=== PATIENT | male | born 1955 | race Hispanic/Latino ===

== ENCOUNTER 2017-12-01 04:02 | Emergency (ER) | payer MEDICAID ==
[2017-12-01 04:02] VITALS: BMI 28.2
[2017-12-01 04:22] VITALS: RESP 18; TEMP 98; O2SAT 99
--- NOTE | 2017-12-01 05:02 | ED PDOC ---
HPI: General Adult Time Seen by Provider: 12/01/17 04:25 Chief Complaint (Nursing): Medical Clearance Chief Complaint (Provider): Medication refill History Per: Patient History/Exam Limitations: no limitations Onset/Duration Of Symptoms: Days Have you had recent travel within the past 21 days to any of the following countries: [place], [place], [place] or [place]?: No Additional Complaint(s): 62 yo male with type II DM and HTN presents for evaluation of blood glucose and BP. PT also would like a refill of his metformin. Pt takes 1000mg PO BID. Denies complaints. Past Medical History Reviewed: Historical Data, Nursing Documentation, Vital Signs Vital Signs: Last Vital Signs Temp 98 F 12/01/17 04:19 Pulse 86 12/01/17 04:19 Resp 18 12/01/17 04:19 BP 140/64 12/01/17 04:19 Pulse Ox 99 12/01/17 04:19 - Medical History PMH: Diabetes, HTN, Hypercholesterolemia, Parkinson's Disease, Schizophrenia Denies: HIV, Chronic Kidney Disease - Surgical History Surgical History: Tonsillectomy - Family History Family History: States: Unknown Family Hx - Living Arrangements Living Arrangements: With Family - Social History Current smoker - smoking cessation education provided: No - Immunization History Hx Tetanus Toxoid Vaccination: No Hx Influenza Vaccination: Yes Hx Pneumococcal Vaccination: No - Home Medications Home Medications: Ambulatory Orders Medication Instructions Recorded Acarbose 100 mg PO TID #0 06/30/13 Benztropine [Cogentin] 1 mg PO DAILY #0 06/30/13 QUEtiapine [Seroquel XR] 300 mg PO HS #0 06/30/13 Insulin Glargine, Recombinan 50 unit SC DAILY 09/30/14 [Lantus] Piperacillin/Tazobact 2.25gm 2.25 gm IVPB Q8H #0 bag 10/08/14 [ZOSYN 2.25 gm in 0.9% 100 ml] Acetaminophen [Tylenol 325mg tab] 650 mg PO Q4 PRN #0 tab 10/19/14 Aluminum Hydroxide/Magnesium 30 ml PO Q6 PRN #0 udc 10/19/14 [Maalox Plus 30 ml] Atorvastatin [Lipitor] 10 mg PO HS #0 tab 10/19/14 Benztropine [Cogentin] 1 mg PO DAILY #0 tab 10/19/14 Colchicine 0.6 mg PO DAILY 10/19/14 Insulin Detemir [Levemir] 50 units SC DAILY@2200 #0 vial 10/19/14 Tamsulosin [Flomax] 0.4 mg PO DAILY #0 cap 10/19/14 MetFORMIN [glucoPHAGE] 1,000 mg PO BID #14 tab 12/01/17 - Allergies Allergies/Adverse Reactions: Allergies Allergy/AdvReac Type Severity Reaction Status Date / Time No Known Allergies Allergy Verified 09/30/14 13:33 Review of Systems ROS Statement: Except As Marked, All Systems Reviewed And Found Negative Constitutional: Negative for: Fever, Chills Cardiovascular: Negative for: Chest Pain Respiratory: Negative for: Cough Gastrointestinal: Negative for: Nausea, Vomiting, Abdominal Pain Genitourinary Male: Negative for: Dysuria, Frequency Physical Exam - Reviewed Nursing Documentation Reviewed: Yes Vital Signs Reviewed: Yes - Physical Exam Appears: Positive for: Well, Non-toxic, No Acute Distress Head Exam: Positive for: ATRAUMATIC, NORMAL INSPECTION, NORMOCEPHALIC Skin: Positive for: Normal Color, Warm, DRY Eye Exam: Positive for: Normal appearance ENT: Positive for: Normal ENT Inspection Neck: Positive for: Normal, Painless ROM Cardiovascular/Chest: Positive for: Regular Rate, Rhythm Respiratory: Positive for: CNT, Normal Breath Sounds Back: Positive for: Normal Inspection Extremity: Positive for: Normal ROM Neurologic/Psych: Positive for: Alert, Oriented - ECG O2 Sat by Pulse Oximetry: 99 Disposition - Clinical Impression Clinical Impression: Medication refill - Patient ED Disposition Is Patient to be Admitted: No Counseled Patient/Family Regarding: Diagnosis, Need For Followup, Rx Given - Disposition Referrals: [facility] [Outside] Disposition: Routine/Home Disposition Time: 05:01 Condition: STABLE Prescriptions: MetFORMIN [glucoPHAGE] 1,000 mg PO BID #14 tab
[2017-12-01 05:26] VITALS: BP 156/76; PULSE 82
== END 2017-12-01 05:26 | disposition home or self-care (01) ==
LOC: H.ER 04:02
DX: Z76.0 Encounter for issue of repeat prescription (principal); E11.9 Type 2 diabetes mellitus without complications; Z79.4 Long term (current) use of insulin; G20 Parkinson's disease; E78.00 Pure hypercholesterolemia, unspecified; F20.9 Schizophrenia, unspecified; I10 Essential (primary) hypertension

== ENCOUNTER 2017-12-01 21:28 | Emergency (ER) | payer MEDICAID ==
[2017-12-01 21:28] VITALS: BMI 28.2
[2017-12-01 21:44] VITALS: RESP 18
--- NOTE | 2017-12-01 23:31 | ED PDOC ---
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 Patient is currently taking metformin 1000mg BID and Ramipril 10mg daily for blood pressure. He reports a mild headache and mild nausea but denies any fever, chills, dizziness, chest pain, shortness of breath, vomiting or abdominal pain. No further medical complaints. PMD: Tyree [facility]ula Past Medical History Reviewed: Historical Data, Nursing Documentation, Vital Signs Vital Signs: Last Vital Signs Temp 97.8 F 12/01/17 21:41 Pulse 98 H 12/01/17 21:41 Resp 18 12/01/17 21:41 BP 140/68 12/02/17 00:16 Pulse Ox 98 12/02/17 00:20 - Medical History PMH: Diabetes, HTN, Hypercholesterolemia, Parkinson's Disease, Schizophrenia Denies: HIV, Chronic Kidney Disease - Surgical History Surgical History: Tonsillectomy - Family History Family History: States: Unknown Family Hx - Social History Current smoker - smoking cessation education provided: No Alcohol: None Drugs: Denies - Immunization History Hx Tetanus Toxoid Vaccination: No Hx Influenza Vaccination: Yes Hx Pneumococcal Vaccination: No - Home Medications Home Medications: Ambulatory Orders Medication Instructions Recorded Acarbose 100 mg PO TID #0 06/30/13 Benztropine [Cogentin] 1 mg PO DAILY #0 06/30/13 QUEtiapine [Seroquel XR] 300 mg PO HS #0 06/30/13 Insulin Glargine, Recombinan 50 unit SC DAILY 09/30/14 [Lantus] Piperacillin/Tazobact 2.25gm 2.25 gm IVPB Q8H #0 bag 10/08/14 [ZOSYN 2.25 gm in 0.9% 100 ml] Acetaminophen [Tylenol 325mg tab] 650 mg PO Q4 PRN #0 tab 10/19/14 Aluminum Hydroxide/Magnesium 30 ml PO Q6 PRN #0 udc 10/19/14 [Maalox Plus 30 ml] Atorvastatin [Lipitor] 10 mg PO HS #0 tab 10/19/14 Benztropine [Cogentin] 1 mg PO DAILY #0 tab 10/19/14 Colchicine 0.6 mg PO DAILY 10/19/14 Insulin Detemir [Levemir] 50 units SC DAILY@2200 #0 vial 10/19/14 Tamsulosin [Flomax] 0.4 mg PO DAILY #0 cap 10/19/14 MetFORMIN [glucoPHAGE] 1,000 mg PO BID #14 tab 12/01/17 - Allergies Allergies/Adverse Reactions: Allergies Allergy/AdvReac Type Severity Reaction Status Date / Time No Known Allergies Allergy Verified 09/30/14 13:33 Review of Systems ROS Statement: Except As Marked, All Systems Reviewed And Found Negative Constitutional: Negative for: Fever, Chills Cardiovascular: Negative for: Chest Pain Respiratory: Negative for: Shortness of Breath Gastrointestinal: Positive for: Nausea (mild). Negative for: Vomiting, Abdominal Pain Neurological: Positive for: Headache (mild). Negative for: Dizziness Physical Exam - Reviewed Nursing Documentation Reviewed: Yes Vital Signs Reviewed: Yes - Physical Exam Comments: GENERAL APPEARANCE: Patient is awake, alert, oriented x 3, in no acute distress. SKIN: Warm, dry; (-) cyanosis; (-) rash. HEAD: (-) scalp swelling or tenderness, (-) temporal artery tenderness. EYES: (-) conjunctival pallor, (-) scleral icterus. ENMT: (-) sinus tenderness; mucous membranes are moist. NECK: (-) tenderness, (-) stiffness, (-) meningismus, (-) lymphadenopathy. CHEST AND RESPIRATORY: (-) rales, (-) rhonchi, (-) wheezes; breath sounds equal bilaterally. HEART AND CARDIOVASCULAR: (-) irregularity; (-) murmur, (-) gallop. ABDOMEN AND GI: Soft; (-) tenderness. EXTREMITIES: (-) deformity. NEURO AND PSYCH: Mental status as above. educational aide: Pupils equal and reactive; EOMI ; (-) facial asymmetry; tongue and uvula midline. Strength symmetric. Ambulating with a steady gait. - ECG O2 Sat by Pulse Oximetry: 98 (RA) Pulse Ox Interpretation: Normal Medical Decision Making Medical Decision Making: Time: 21:47 Initial Impression: Initial Plan: --Ramipril 10 mg PO --Gluose, Blood POC --reevaluation 22:50 Finger Stick: 263 Repeat BP 140/68. On re-evaluation, patient remains AAOx3, in no acute distress. Offers no other complaints. Denies any headache or nausea at this time. Patient instructed to follow-up with pmd in 1-2 days without fail. RN will call local fire department to help the patient get back inside of his home. Advised to return to the emergency room at any time for any new or worsening symptoms. Patient states he fully agrees with and understands discharge instructions. States that he agrees with the plan and disposition. Verbalized and repeated discharge instructions and plan. I have given the patient opportunity to ask any additional questions. ----- Scribe Attestation: Documented by Tesfaye Oates, acting as a scribe for Neema Davis PA-C. Provider Scribe Attestation: All medical record entries made by the Scribe were at my direction and personally dictated by me. I have reviewed the chart and agree that the record accurately reflects my personal performance of the history, physical exam, medical decision making, and the department course for this patient. I have also personally directed, reviewed, and agree with the discharge instructions and disposition. Disposition - Clinical Impression Clinical Impression: Hypertension - Patient ED Disposition Is Patient to be Admitted: No Counseled Patient/Family Regarding: Diagnosis, Need For Followup - Disposition Disposition: Routine/Home Disposition Time: 00:00 Condition: STABLE Additional Instructions: Thank you for letting us take care of you today. You were treated for HTN. The emergency medical care you received today was directed at your acute symptoms. Return to the Emergency Department if your symptoms worsen, do not improve, or if you have any other problems. Please contact your doctor in 2 days for re-evaluation and follow up. Bring any paperwork you were given at discharge with you along with any medications you are taking to your follow up visit. Our treatment cannot replace ongoing medical care by a primary care provider (PCP) outside of the emergency department. Thank you for allowing the [facility] team to be part of your care today. Instructions: High Blood Pressure in Adults Forms: [employer] (German) - PA / VOC[employer] CHILDC[employer] TEACHER / Resident Statement MD/DO has reviewed & agrees with the documentation as recorded.
[2017-12-02 03:20] VITALS: BP 132/66; PULSE 90; TEMP 98.2; O2SAT 99
== END 2017-12-02 01:50 | disposition home or self-care (01) ==
LOC: H.ER 21:28
DX: I10 Essential (primary) hypertension (principal); E11.9 Type 2 diabetes mellitus without complications; E78.00 Pure hypercholesterolemia, unspecified; F20.9 Schizophrenia, unspecified; G20 Parkinson's disease; Z79.4 Long term (current) use of insulin

== ENCOUNTER 2018-03-19 08:10 | Emergency (ER) | payer MEDICAID ==
[2018-03-19 08:10] VITALS: BMI 28.2
--- NOTE | 2018-03-19 08:36 | ED PDOC ---
HPI: CCC, URI, Sore Throat Time Seen by Provider: 03/19/18 08:17 Chief Complaint (Provider): Cough History Per: Patient History/Exam Limitations: no limitations Onset/Duration Of Symptoms: Days (1 week) Additional Complaint(s): Pt. with cough for 1 week. No chest pain, dyspnea, fever. No abd pain, headaches, dizziness. Took nothing for it. Has runny nose and nasal congestion. No weakness. Past Medical History Vital Signs: Last Vital Signs Temp 97.7 F 03/19/18 08:15 Pulse 83 03/19/18 08:15 Resp 19 03/19/18 08:15 BP 178/74 H 03/19/18 08:15 Pulse Ox 99 03/19/18 08:15 - Medical History PMH: Diabetes, HTN, Hypercholesterolemia, Parkinson's Disease, Schizophrenia Denies: HIV, Chronic Kidney Disease - Surgical History Surgical History: Tonsillectomy - Family History Family History: States: Unknown Family Hx - Immunization History Hx Tetanus Toxoid Vaccination: No Hx Influenza Vaccination: Yes Hx Pneumococcal Vaccination: No - Home Medications Home Medications: Ambulatory Orders Medication Instructions Recorded Acarbose 100 mg PO TID #0 06/30/13 Benztropine [Cogentin] 1 mg PO DAILY #0 06/30/13 QUEtiapine [Seroquel XR] 300 mg PO HS #0 06/30/13 Insulin Glargine, Recombinan 50 unit SC DAILY 09/30/14 [Lantus] Piperacillin/Tazobact 2.25gm 2.25 gm IVPB Q8H #0 bag 10/08/14 [ZOSYN 2.25 gm in 0.9% 100 ml] Acetaminophen [Tylenol 325mg tab] 650 mg PO Q4 PRN #0 tab 10/19/14 Aluminum Hydroxide/Magnesium 30 ml PO Q6 PRN #0 udc 10/19/14 [Maalox Plus 30 ml] Atorvastatin [Lipitor] 10 mg PO HS #0 tab 10/19/14 Benztropine [Cogentin] 1 mg PO DAILY #0 tab 10/19/14 Colchicine 0.6 mg PO DAILY 10/19/14 Insulin Detemir [Levemir] 50 units SC DAILY@2200 #0 vial 10/19/14 Tamsulosin [Flomax] 0.4 mg PO DAILY #0 cap 10/19/14 MetFORMIN [glucoPHAGE] 1,000 mg PO BID #14 tab 12/01/17 Azithromycin [Zithromax] 250 mg PO DAILY 5 Days tab 03/19/18 Benzonatate [Tessalon Perles] 100 mg PO BID PRN 5 Days sgl 03/19/18 Ibuprofen [Motrin] 600 mg PO TID 7 Days tab 03/19/18 - Allergies Allergies/Adverse Reactions: Allergies Allergy/AdvReac Type Severity Reaction Status Date / Time No Known Allergies Allergy Verified 09/30/14 13:33 Review of Systems ROS Statement: Except As Marked, All Systems Reviewed And Found Negative ENT: Positive for: Nose Pain, Nose Discharge, Nose Congestion Respiratory: Positive for: Cough Physical Exam - Reviewed Nursing Documentation Reviewed: Yes Vital Signs Reviewed: Yes - Physical Exam Appears: Positive for: Non-toxic, No Acute Distress Head Exam: Positive for: ATRAUMATIC, NORMAL INSPECTION, NORMOCEPHALIC Skin: Positive for: Normal Color, Warm, DRY Eye Exam: Positive for: EOMI, Normal appearance, PERRL ENT: Positive for: Nasal Congestion. Negative for: Pharyngeal Erythema Neck: Positive for: Normal, Painless ROM, Supple Cardiovascular/Chest: Positive for: Regular Rate, Rhythm Respiratory: Positive for: CNT, Normal Breath Sounds Gastrointestinal/Abdominal: Positive for: Normal Exam, Soft. Negative for: Tenderness Back: Positive for: Normal Inspection. Negative for: L CVA Tenderness, R CVA Tenderness Extremity: Positive for: Normal ROM. Negative for: Tenderness Neurologic/Psych: Positive for: Alert, Oriented - ECG O2 Sat by Pulse Oximetry: 99 Pulse Ox Interpretation: Normal - Progress ED Course And Treament: 837: Stable. URI. Will rx zithromax considering pt. with risk factors for worsening infection. Disposition - Clinical Impression Clinical Impression: URI (upper respiratory infection) - Patient ED Disposition Is Patient to be Admitted: No Counseled Patient/Family Regarding: Diagnosis, Need For Followup, Rx Given - Disposition Referrals: [facility] [Outside] - 03/20/18 Disposition: Routine/Home Disposition Time: 08:38 Condition: STABLE Additional Instructions: Return if not better in 3 days. Prescriptions: Azithromycin [Zithromax] 250 mg PO DAILY 5 Days tab Benzonatate [Tessalon Perles] 100 mg PO BID PRN 5 Days sgl PRN Reason: Cough Ibuprofen [Motrin] 600 mg PO TID 7 Days tab Instructions: Cough, Runny Nose, and the Common Cold
[2018-03-19 09:38] VITALS: BP 173/76; PULSE 82; RESP 18; TEMP 97.9; O2SAT 97
== END 2018-03-19 09:15 | disposition home or self-care (01) ==
LOC: H.ER 08:10
DX: J06.9 Acute upper respiratory infection, unspecified (principal)

== ENCOUNTER 2018-03-31 07:00 | Emergency (ER) | payer MEDICAID ==
[2018-03-31 07:00] VITALS: BMI 28.2
[2018-03-31 07:28] VITALS: TEMP 98.2; O2SAT 96
[2018-03-31] MEDS ORDERED: Sodium Chloride 0.9% 1,000 ML IV STA (07:39)
[2018-03-31] MEDS ORDERED: Insulin Regular 100 units/ml IVP ONE ×2 (07:39→10:20)
[2018-03-31] MEDS ORDERED: ceFAZolin IV 1 gm in Dextrose 1 GM/50 ML BAG IVPB STA (07:39)
--- NOTE | 2018-03-31 07:51 | ED PDOC ---
HPI: Skin/Bite Injury Time Seen by Provider: 03/31/18 07:11 Chief Complaint (Nursing): Abnormal Skin Integrity Chief Complaint (Provider): Abnormal Skin Integrity History Per: Patient History/Exam Limitations: no limitations Onset/Duration Of Symptoms: Days (x1 week ) Location Of Injury: Left: Buttock Additional Complaint(s): Sid Jefferson is 62 year old male with a past medical history of HTN, diabetes and Parkinson's disease, who presents to the emergency department complaining of "sore" buttock area, onset x1 week. He denies pain with range of motion of legs and back. Patient denies abdominal pain, shortness of breath, drainage, fever, recent skin infection, or recent hospital visits. PMD: [facility] Past Medical History Reviewed: Historical Data, Nursing Documentation, Vital Signs Vital Signs: Last Vital Signs Temp 98.2 F 03/31/18 07:15 Pulse 81 03/31/18 07:15 Resp 18 03/31/18 07:15 BP 161/87 H 03/31/18 07:15 Pulse Ox 96 03/31/18 07:15 - Medical History PMH: Diabetes, HTN, Hypercholesterolemia, Parkinson's Disease, Schizophrenia Denies: HIV, Chronic Kidney Disease - Surgical History Surgical History: Tonsillectomy Other surgeries: Eye Surgery - Family History Family History: States: Unknown Family Hx - Living Arrangements Living Arrangements: Alone - Social History Current smoker - smoking cessation education provided: No Alcohol: None - Immunization History Hx Tetanus Toxoid Vaccination: No Hx Influenza Vaccination: Yes Hx Pneumococcal Vaccination: No - Home Medications Home Medications: Ambulatory Orders Medication Instructions Recorded Acarbose 100 mg PO TID #0 06/30/13 Benztropine [Cogentin] 1 mg PO DAILY #0 06/30/13 QUEtiapine [Seroquel XR] 300 mg PO HS #0 06/30/13 Insulin Glargine, Recombinan 50 unit SC DAILY 09/30/14 [Lantus] Piperacillin/Tazobact 2.25gm 2.25 gm IVPB Q8H #0 bag 10/08/14 [ZOSYN 2.25 gm in 0.9% 100 ml] Acetaminophen [Tylenol 325mg tab] 650 mg PO Q4 PRN #0 tab 10/19/14 Aluminum Hydroxide/Magnesium 30 ml PO Q6 PRN #0 udc 10/19/14 [Maalox Plus 30 ml] Atorvastatin [Lipitor] 10 mg PO HS #0 tab 10/19/14 Benztropine [Cogentin] 1 mg PO DAILY #0 tab 10/19/14 Colchicine 0.6 mg PO DAILY 10/19/14 Insulin Detemir [Levemir] 50 units SC DAILY@2200 #0 vial 10/19/14 Tamsulosin [Flomax] 0.4 mg PO DAILY #0 cap 10/19/14 MetFORMIN [glucoPHAGE] 1,000 mg PO BID #14 tab 12/01/17 Azithromycin [Zithromax] 250 mg PO DAILY 5 Days tab 03/19/18 Benzonatate [Tessalon Perles] 100 mg PO BID PRN 5 Days sgl 03/19/18 Ibuprofen [Motrin] 600 mg PO TID 7 Days tab 03/19/18 Mupirocin 2% Ointment [Bactroban 1 applic EXT BID #1 tube 03/31/18 Ointment] Sulfamethoxazole/Trimethoprim 1 tab PO BID #14 tab 03/31/18 [Bactrim DS 800 mg-160 mg] - Allergies Allergies/Adverse Reactions: Allergies Allergy/AdvReac Type Severity Reaction Status Date / Time No Known Allergies Allergy Verified 03/31/18 07:28 Review of Systems ROS Statement: Except As Marked, All Systems Reviewed And Found Negative Constitutional: Negative for: Fever Respiratory: Negative for: Shortness of Breath Gastrointestinal: Negative for: Abdominal Pain Musculoskeletal: Positive for: Other ("sore" left buttock ) Skin: Positive for: Lesions (no drainage) Physical Exam - Reviewed Nursing Documentation Reviewed: Yes Vital Signs Reviewed: Yes - Physical Exam Appears: Positive for: Non-toxic, No Acute Distress Head Exam: Positive for: ATRAUMATIC, NORMOCEPHALIC Rectal: Positive for: Other (3 cm of induration on the left lower outer buttock with no fluctuance or drainage; sacral area has surrounding erythema non- connecting to the induration on the left buttock) Neurologic/Psych: Positive for: Alert, Oriented (x3). Negative for: Motor/Sensory Deficits - Laboratory Results Result Diagrams: 03/31/18 07:45 03/31/18 07:45 - ECG O2 Sat by Pulse Oximetry: 96 (RA) Pulse Ox Interpretation: Normal Medical Decision Making Medical Decision Making: Initial Time: 07:39 Initial Impression: Early cellulitis vs. furuncle Initial Plan: Accucheck and treatment for cellulitis vs. furuncle --CMP --CBC with differential --Anceg 1 gm/ns 100 ml --Insulin Human Regular 4 units IVPB --Sodium Chloride 1,000 ml WBC normal afebrile glucose improved stable for outpatient treatment, may need I&D in several days if small faruncle collects but now no fluctuance, trial PO Abx and bactroban, warm compresses, fol lowup PMD Scribe Attestation: Documented by Teja Baltazar, acting as a scribe for Amos Vázquez III, DO. Provider Scribe Attestation: All medical record entries made by the Scribe were at my direction and personally dictated by me. I have reviewed the chart and agree that the record accurately reflects my personal performance of the history, physical exam, medical decision making, and the department course for this patient. I have also personally directed, reviewed, and agree with the discharge instructions and disposition. Disposition - Clinical Impression Clinical Impression: Carbuncle and furuncle of buttock, Cellulitis - Patient ED Disposition Is Patient to be Admitted: No Counseled Patient/Family Regarding: Studies Performed, Diagnosis, Need For Followup, Rx Given - Disposition Disposition: Routine/Home Disposition Time: 11:42 Condition: STABLE Additional Instructions: You may need your boil drained in the coming days. Take antibiotics 2x daily, use warm compress to area 4x daily for 10minutes, and see your doctor or return to ER for any persistent or worsening symptoms. Check your sugar daily. Prescriptions: Mupirocin 2% Ointment [Bactroban Ointment] 1 applic EXT BID #1 tube Sulfamethoxazole/Trimethoprim [Bactrim DS 800 mg-160 mg] 1 tab PO BID #14 tab Instructions: Cellulitis and Erysipelas (Skin Infections), Boil (DC) Forms: [facility] [facility] ([place])
[2018-03-31 07:59] LABS: BASO # 0.1 K/uL (0.0-0.2); BASO % 1.1 % (0.0-2.0); EOS # 0.2 K/uL (0.0-0.7); EOS % 2.5 % (0.0-4.0); HEMOGLOBIN 10.2 g/dL (12.0-18.0); LYMPH # 1.7 K/uL (1.0-4.3); LYMPH % 19.6 % (20.0-40.0); MEAN CELL VOLUME 87.4 fl (80.0-94.0); MEAN CORPUSCULAR HEMOGLOBIN 29.9 pg (27.0-31.0); MEAN CORPUSCULAR HGB CONC 34.2 g/dL (33.0-37.0); MEAN PLATELET VOLUME 6.7 fl (7.2-11.7); MONO # 0.6 K/uL (0.0-0.8); MONO % 7.5 % (0.0-10.0); NEUT # 5.9 K/uL (1.8-7.0); NEUT % 69.3 % (50.0-75.0); NRBC % 0.1 % (0.0-0.0); RBC 3.42 Mil/uL (4.40-5.90); RED CELL DISTRIBUTION WIDTH 13.4 % (11.5-14.5); WHITE BLOOD COUNT 8.5 K/uL (4.8-10.8)
[2018-03-31 08:12] LABS: ALB/GLOB RATIO 1.1 (1.0-2.1); ALBUMIN 3.7 g/dL (3.5-5.0); ALT/SGPT 23 U/L (21-72); AST/SGOT 27 U/L (17-59); BLOOD UREA NITROGEN 21 mg/dl (9-20); GFR NON-AFRICAN AMERICAN > 60
[2018-03-31] MEDS ORDERED: ceFAZolin IV 1 gm in Dextrose 1 GM/50 ML BAG IVPB ONE (08:25)
[2018-03-31] MEDS ORDERED: Insulin Regular 100 units/ml ONE (10:27)
[2018-03-31 13:06] VITALS: BP 130/70; PULSE 84; RESP 17
== END 2018-03-31 12:30 | disposition home or self-care (01) ==
LOC: H.ER 07:00
DX: L02.32 Furuncle of buttock (principal); E11.9 Type 2 diabetes mellitus without complications; Z86.59 Personal history of other mental and behavioral disorders; G20 Parkinson's disease; I10 Essential (primary) hypertension; Z79.4 Long term (current) use of insulin; E78.00 Pure hypercholesterolemia, unspecified
CPT/HCPCS: 80053; 82948; 85025; 96361; 96374; 96375; 96376; 99283; J0690; J7030

== ENCOUNTER 2018-04-26 07:57 | Emergency (ER) | payer MEDICAID ==
[2018-04-26 07:58] VITALS: BMI 28.2
[2018-04-26 08:17] VITALS: RESP 19; O2SAT 98
--- NOTE | 2018-04-26 08:20 | ED PDOC ---
HPI: Hypertension/Hypotension Time Seen by Provider: 04/26/18 08:07 Chief Complaint (Nursing): High Blood Pressure Chief Complaint (Provider): High Blood Pressure History Per: Patient History/Exam Limitations: no limitations Onset/Duration Of Symptoms: Mins (HAND FLESHER ) Current Symptoms Are (Timing): Still Present Associated Symptoms: denies: Chest Pain, Dyspnea Quality Of Symptoms: Asymptomatic Exacerbating Factor(s): Pos: Recently Missed Doses Of Medication Additional Complaint(s): 62 year old male with a history of hypertension presents to the ED with high blood pressure. Patient went to the pharmacy to refill his Ramipril which he takes 10 mg of daily. At the pharmacy his blood pressure was 194/104, prompting ED visit. He denies any symptoms including chest pain, headache and shortness of breath. PMD: Dr. Tyree Arambula Past Medical History Reviewed: Historical Data, Nursing Documentation, Vital Signs Vital Signs: Last Vital Signs Temp 97.2 F L 04/26/18 08:01 Pulse 97 H 04/26/18 08:16 Resp 19 04/26/18 08:16 BP 158/82 H 04/26/18 08:16 Pulse Ox 98 04/26/18 08:16 - Medical History PMH: Diabetes, HTN, Hypercholesterolemia, Parkinson's Disease, Schizophrenia Denies: HIV, Chronic Kidney Disease - Surgical History Surgical History: Tonsillectomy - Family History Family History: States: Unknown Family Hx - Immunization History Hx Tetanus Toxoid Vaccination: No Hx Influenza Vaccination: Yes Hx Pneumococcal Vaccination: No - Home Medications Home Medications: Ambulatory Orders Medication Instructions Recorded Acarbose 100 mg PO TID #0 06/30/13 Benztropine [Cogentin] 1 mg PO DAILY #0 06/30/13 QUEtiapine [Seroquel XR] 300 mg PO HS #0 06/30/13 Insulin Glargine, Recombinan 50 unit SC DAILY 09/30/14 [Lantus] Piperacillin/Tazobact 2.25gm 2.25 gm IVPB Q8H #0 bag 10/08/14 [ZOSYN 2.25 gm in 0.9% 100 ml] Acetaminophen [Tylenol 325mg tab] 650 mg PO Q4 PRN #0 tab 10/19/14 Aluminum Hydroxide/Magnesium 30 ml PO Q6 PRN #0 udc 10/19/14 [Maalox Plus 30 ml] Atorvastatin [Lipitor] 10 mg PO HS #0 tab 10/19/14 Benztropine [Cogentin] 1 mg PO DAILY #0 tab 10/19/14 Colchicine 0.6 mg PO DAILY 10/19/14 Insulin Detemir [Levemir] 50 units SC DAILY@2200 #0 vial 10/19/14 Tamsulosin [Flomax] 0.4 mg PO DAILY #0 cap 10/19/14 MetFORMIN [glucoPHAGE] 1,000 mg PO BID #14 tab 12/01/17 Azithromycin [Zithromax] 250 mg PO DAILY 5 Days tab 03/19/18 Benzonatate [Tessalon Perles] 100 mg PO BID PRN 5 Days sgl 03/19/18 Ibuprofen [Motrin] 600 mg PO TID 7 Days tab 03/19/18 Mupirocin 2% Ointment [Bactroban 1 applic EXT BID #1 tube 03/31/18 Ointment] Sulfamethoxazole/Trimethoprim 1 tab PO BID #14 tab 03/31/18 [Bactrim DS 800 mg-160 mg] Ramipril 10 mg PO DAILY #7 capsule 04/26/18 - Allergies Allergies/Adverse Reactions: Allergies Allergy/AdvReac Type Severity Reaction Status Date / Time No Known Allergies Allergy Verified 03/31/18 07:28 Review of Systems ROS Statement: Except As Marked, All Systems Reviewed And Found Negative Constitutional: Positive for: Other (high blood pressure ) Cardiovascular: Negative for: Chest Pain Respiratory: Negative for: Shortness of Breath Neurological: Negative for: Headache Physical Exam - Reviewed Nursing Documentation Reviewed: Yes Vital Signs Reviewed: Yes - Physical Exam Appears: Positive for: Non-toxic, No Acute Distress Head Exam: Positive for: ATRAUMATIC, NORMAL INSPECTION, NORMOCEPHALIC Skin: Positive for: Normal Color, Warm, Dry Eye Exam: Positive for: EOMI, Normal appearance, PERRL Neck: Positive for: Normal, Painless ROM, Supple Cardiovascular/Chest: Positive for: Regular Rate, Rhythm. Negative for: Murmur Respiratory: Positive for: Normal Breath Sounds. Negative for: Respiratory Distress Gastrointestinal/Abdominal: Positive for: Normal Exam, Soft. Negative for: Tenderness Extremity: Positive for: Normal ROM (upper and lower extremities ). Negative for: Deformity Neurologic/Psych: Positive for: Alert, Oriented. Negative for: Motor/Sensory Deficits - Laboratory Results Result Diagrams: 04/26/18 08:50 04/26/18 08:50 - ECG Interpretation Of ECG: NSR @ 93, bifascicular block. O2 Sat by Pulse Oximetry: 98 (RA) Pulse Ox Interpretation: Normal Medical Decision Making Medical Decision Makin:23 Initial Impression: high blood pressure Initial Plan: --Glucose --CMP --CBC --EKG --Urine dip --NS IV --Ramipril 10 mg PO --UA Scribe Attestation: Documented by Sophie Lechuga, acting as a scribe for Erica Tsai MD Provider Scribe Attestation: All medical record entries made by the Scribe were at my direction and personally dictated by me. I have reviewed the chart and agree that the record accurately reflects my personal performance of the history, physical exam, medical decision making, and the department course for this patient. I have also personally directed, reviewed, and agree with the discharge instructions and disposition. Disposition - Clinical Impression Clinical Impression: Elevated blood pressure reading, Medication refill, Hyperglycemia - Disposition Disposition: Routine/Home Disposition Time: 10:26 Condition: STABLE Additional Instructions: FOLLOW-UP WITH PMD WITHIN 2 DAYS FOR REEVALUATION. Prescriptions: Ramipril 10 mg PO DAILY #7 capsule Instructions: High Blood Pressure in Adults, Hyperglycemia, Adult, Medicines for High Blood Pressure Forms: [facility] (Turkish)
[2018-04-26] MEDS ORDERED: Sodium Chloride 0.9% 1,000 ML IV STA (08:23)
[2018-04-26 09:06] LABS: BASO # 0.1 K/uL (0.0-0.2); BASO % 0.6 % (0.0-2.0); EOS # 0.2 K/uL (0.0-0.7); EOS % 1.5 % (0.0-4.0); HEMOGLOBIN 10.9 g/dL (12.0-18.0); LYMPH # 1.7 K/uL (1.0-4.3); LYMPH % 15.7 % (20.0-40.0); MEAN CELL VOLUME 89.5 fl (80.0-94.0); MEAN CORPUSCULAR HEMOGLOBIN 29.4 pg (27.0-31.0); MEAN CORPUSCULAR HGB CONC 32.9 g/dL (33.0-37.0); MEAN PLATELET VOLUME 6.8 fl (7.2-11.7); MONO # 0.6 K/uL (0.0-0.8); MONO % 5.6 % (0.0-10.0); NEUT # 8.2 K/uL (1.8-7.0); NEUT % 76.6 % (50.0-75.0); RBC 3.72 Mil/uL (4.40-5.90); RED CELL DISTRIBUTION WIDTH 14.1 % (11.5-14.5); WHITE BLOOD COUNT 10.7 K/uL (4.8-10.8)
[2018-04-26 09:42] LABS: ALB/GLOB RATIO 1.2 (1.0-2.1); ALBUMIN 4.2 g/dL (3.5-5.0); ALT/SGPT 21 U/L (21-72); AST/SGOT 22 U/L (17-59); BLOOD UREA NITROGEN 22 mg/dl (9-20); CALCIUM 8.7 mg/dL (8.4-10.2); GFR NON-AFRICAN AMERICAN > 60
[2018-04-26 10:10] LABS: SQUAMOUS EPITHIAL < 1 /hpf (0-5); URINE BILIRUBIN NEGATIVE (NEGATIVE); URINE BLOOD SMALL (NEGATIVE); URINE COLOR YELLOW (YELLOW); URINE GLUCOSE (UA) >=500 mg/dL (Normal); URINE LEUKOCYTE ESTERASE LARGE Leu/uL (Negative); URINE PROTEIN 30 mg/dL (NEGATIVE); URINE UROBILINOGEN 0.2-1.0 mg/dL (0.2-1.0)
[2018-04-26 10:36] LABS: URINE CLARITY Turbid (Clear)
[2018-04-26 10:37] LABS: GRANULAR CAST 0-1 /lpf (0-1); URINE AMORPHOUS SEDIMENT FEW /ul (<OCC); URINE BACTERIA MOD (<OCC)
[2018-04-26 10:43] VITALS: BP 146/75; PULSE 78; TEMP 97
--- NOTE | 2018-04-26 18:03 | CARD ---
APPROVED REPORT Date of service: 04/26/2018 EKG Measurement Heart [id number] <Conclusion> Normal sinus rhythm Right bundle branch block Left anterior fascicular block Bifascicular block Minimal voltage criteria for LVH, may be normal variant Abnormal ECG
== END 2018-04-26 10:44 | disposition home or self-care (01) ==
LOC: H.ER 07:57
DX: I10 Essential (primary) hypertension (principal); Z76.0 Encounter for issue of repeat prescription; E11.65 Type 2 diabetes mellitus with hyperglycemia; G20 Parkinson's disease; Z79.4 Long term (current) use of insulin; Z86.59 Personal history of other mental and behavioral disorders
CPT/HCPCS: 80053; 81003; 82948; 85025; 93005; 99284; J7030

== ENCOUNTER 2018-08-22 10:27 | Inpatient (IN) | payer MEDICAID ==
[2018-08-22] MEDS ORDERED: Sodium Chloride 0.9% 1,000 ML IV STA (10:49)
--- NOTE | 2018-08-22 11:10 | ED PDOC ---
Syncope/Near Syncope/Dizziness Time Seen by Provider: 08/22/18 10:38 Chief Complaint (Nursing): Dizziness/Lightheaded Chief Complaint (Provider): Dizzy History Per: Patient Additional Complaint(s): 62 yo male, PMH of HTN and DM according to Pt, presents to ED with c/o dizziness/lightheadedness, headache, and feeling weak. denies chest pain/sob, n/v/d. Pt reports he ate this morning and took his medications as per usual. PMD: at [facility] [place] Past Medical History Reviewed: Nursing Documentation, Vital Signs Vital Signs: Last Vital Signs Temp 97.4 F L 08/22/18 10:31 Pulse 116 H 08/22/18 10:31 Resp 17 08/22/18 10:31 BP 62/39 L 08/22/18 10:31 Pulse Ox 98 08/22/18 10:31 - Medical History PMH: Diabetes, HTN, Hypercholesterolemia, Parkinson's Disease, Schizophrenia Denies: HIV, Chronic Kidney Disease - Surgical History Surgical History: Tonsillectomy - Family History Family History: States: Unknown Family Hx - Living Arrangements Living Arrangements: Alone - Social History Current smoker - smoking cessation education provided: No Alcohol: None Drugs: Denies - Immunization History Hx Tetanus Toxoid Vaccination: No Hx Influenza Vaccination: Yes Hx Pneumococcal Vaccination: No - Home Medications Home Medications: Ambulatory Orders Medication Instructions Recorded Benztropine [Cogentin] 1 mg PO DAILY #0 06/30/13 Aspirin [Ecotrin] 81 mg PO DAILY 08/22/18 Escitalopram [Lexapro] 20 mg PO DAILY 08/22/18 Folic Acid 1 tab PO DAILY 08/22/18 Insulin Glargine,Hum.rec.anlog 50 unit SC DAILY 08/22/18 [Basaglar Kwikpen U-100] MetFORMIN [glucoPHAGE] 1,000 mg PO BID 08/22/18 Multivitamin [Multi-Vitamin Daily] 1 tab PO DAILY 08/22/18 Pravastatin Sodium [Pravachol] 20 mg PO QPM 08/22/18 QUEtiapine [Seroquel] 100 mg PO HS 08/22/18 Ramipril [Altace] 10 mg PO DAILY 08/22/18 - Allergies Allergies/Adverse Reactions: Allergies Allergy/AdvReac Type Severity Reaction Status Date / Time No Known Allergies Allergy Verified 08/22/18 10:42 Review of Systems ROS Statement: Except As Marked, All Systems Reviewed And Found Negative Neurological: Positive for: Dizziness Physical Exam - Reviewed Nursing Documentation Reviewed: Yes Vital Signs Reviewed: Yes - Physical Exam Appears: Positive for: Well, Non-toxic, No Acute Distress Head Exam: Positive for: ATRAUMATIC, NORMAL INSPECTION, NORMOCEPHALIC Skin: Positive for: Normal Color, Warm, DRY Eye Exam: Positive for: EOMI, Normal appearance, PERRL ENT: Positive for: Normal ENT Inspection Neck: Positive for: Normal, Painless ROM Cardiovascular/Chest: Positive for: Regular Rate, Rhythm Respiratory: Positive for: CNT, Normal Breath Sounds Gastrointestinal/Abdominal: Positive for: Normal Exam, Soft Back: Positive for: Normal Inspection Extremity: Positive for: Normal ROM Neurological/Psych: Positive for: Awake, Alert, Normal Tone - Laboratory Results Result Diagrams: 08/22/18 11:16 08/22/18 11:16 - ECG O2 Sat by Pulse Oximetry: 98 Medical Decision Making Medical Decision Making: Upon arrival, Pt pale and hypotensive. Rerolling Machine Operator and ED MD at bedside. PT 69/40. IV access established and fluids initiated. Pt awake and alert, saying he felt well yesterday and welt to bed no problem. woke up and has been feeling like this since waking this am. Labs sent. EKG preformed at bedside. Pt taken to CT scan: IMPRESSION: No acute intracranial hemorrhage. Mild chronic periventricular white matter ischemic changes. Moderate central volume loss. CXR: IMPRESSION: Findings consistent with minor linear chronic scarring and/or fibrosis left lung base Labs all resulted and reviewed with Pt as well. BUN 29. Hgb 11.9 Troponin and Dimer: negative Case discussed with ED MD, Dr. Osman, who agreed with admission at this time. Dr. Pierce contacted and arrangements made for admission. Tele-obs Disposition - Clinical Impression Clinical Impression: Hypotension, Dizziness, Tachycardia - Patient ED Disposition Is Patient to be Admitted: Yes - Disposition Disposition Time: 13:53 Condition: STABLE Forms: [employer] (Georgian)
--- NOTE | 2018-08-22 11:42 | CT ---
Date of service: 08/22/2018 PROCEDURE: CT HEAD WITHOUT CONTRAST. HISTORY: Dizziness COMPARISON: Comparison made with CT scan brain 03/16/2014. TECHNIQUE: Axial computed tomography images were obtained through the head/brain without intravenous contrast. Radiation dose: Total exam DLP = 0.0 mGy-cm. This CT exam was performed using one or more of the following dose reduction techniques: Automated exposure control, adjustment of the mA and/or kV according to patient size, and/or use of iterative reconstruction technique. FINDINGS: HEMORRHAGE: Parenchymal, subarachnoid nor extra-axial hemorrhage. BRAIN: There are minor chronic periventricular white matter ischemic changes seen extending peripherally into the deep white matter both cerebral hemispheres. Note that the possibility of a small hyperacute infarct cannot be excluded on this study. There is central volume loss evidenced by disproportion enlargement of the ventricles compared sulci. Questionable small incidental pineal gland cyst VENTRICLES: No obstructive hydrocephalus. Re demonstrated is slight asymmetric enlargement of the right lateral ventricle compared the left likely underlying anatomic variant CALVARIUM: Calvarium intact PARANASAL SINUSES: Unremarkable as visualized. No significant inflammatory changes. MASTOID AIR CELLS: Unremarkable as visualized. No inflammatory changes. OTHER FINDINGS: Changes of bilateral cataract surgery IMPRESSION: No acute intracranial hemorrhage. Mild chronic periventricular white matter ischemic changes. Moderate central volume loss.
[2018-08-22 11:43] LABS: BASO % 0.6 % (0.0-2.0); EOS # 0.1 K/uL (0.0-0.7); EOS % 1.5 % (0.0-4.0); HEMOGLOBIN 11.8 g/dL (12.0-18.0); LYMPH # 1.7 K/uL (1.0-4.3); LYMPH % 22.7 % (20.0-40.0); MEAN CELL VOLUME 90.4 fl (80.0-94.0); MEAN CORPUSCULAR HEMOGLOBIN 30.2 pg (27.0-31.0); MEAN CORPUSCULAR HGB CONC 33.4 g/dL (33.0-37.0); MEAN PLATELET VOLUME 7.2 fl (7.2-11.7); MONO # 0.5 K/uL (0.0-0.8); NEUT % 68.2 % (50.0-75.0); RBC 3.9 Mil/uL (4.40-5.90); RED CELL DISTRIBUTION WIDTH 13.3 % (11.5-14.5); WHITE BLOOD COUNT 7.4 K/uL (4.8-10.8)
[2018-08-22 11:44] LABS: ALBUMIN 3.6 g/dL (3.5-5.0); ALT/SGPT 14 U/L (21-72); AST/SGOT 23 U/L (17-59); BLOOD UREA NITROGEN 29 mg/dl (9-20); CALCIUM 8.9 mg/dL (8.4-10.2); GFR NON-AFRICAN AMERICAN 51
--- NOTE | 2018-08-22 11:49 | RAD ---
Date of service: 08/22/2018 HISTORY: SOB COMPARISON: Comparison made with chest radiograph dated 10/14/2019 FINDINGS: LUNGS: Linear density left lung base likely represents chronic scar/fibrosis PLEURA: No significant pleural effusion identified, no pneumothorax apparent. CARDIOVASCULAR: No aortic atherosclerotic calcification present. Normal cardiac size. No pulmonary vascular congestion. OSSEOUS STRUCTURES: No significant abnormalities. VISUALIZED UPPER ABDOMEN: Normal. OTHER FINDINGS: None. IMPRESSION: Findings consistent with minor linear chronic scarring and/or fibrosis left lung base
[2018-08-22 11:55] LABS: B-TYPE NATRIURETIC PEPTIDE 429 pg/ml (0-900); PROTHROMBIN TIME 10.9 Seconds (9.8-13.1)
[2018-08-22 11:57] LABS: PARTIAL THROMBOPLASTIN TIME 34.7 Seconds (25.6-37.1)
[2018-08-22 15:11] LABS: URINE AMORPHOUS SEDIMENT OCC /ul (<OCC); URINE BACTERIA MANY (<OCC); URINE BILIRUBIN NEGATIVE (NEGATIVE); URINE BLOOD SMALL (NEGATIVE); URINE CLARITY TURBID (Clear); URINE COLOR YELLOW (YELLOW); URINE GLUCOSE (UA) 50 mg/dL (NEGATIVE); URINE LEUKOCYTE ESTERASE LARGE Leu/uL (Negative); URINE PROTEIN 30 mg/dL (NEGATIVE); URINE UROBILINOGEN 0.2-1.0 mg/dL (0.2-1.0)
[2018-08-22 15:15] LABS: BARBITURATES, UR NEGATIVE (NEGATIVE); BENZODIAZEPINES, UR NEGATIVE (NEGATIVE); OPIATES, UR NEGATIVE (NEGATIVE); PHENCYCLIDINE, UR NEGATIVE (NEGATIVE)
--- NOTE | 2018-08-22 16:23 | CP.PCM.HP ---
History of Present Illness - History of Present Illness History of Present Illness: CC: Dizziness History of Present Illness: 62 years old male with past medical history of schizoaffective disorder, DM 2, and hypertension presented to the ER with this dizziness described as lightheadedness worse on sitting from lying down. Patient admits taking extra Seroquel after voices told him to take extra dose. Hypotensive to systolic blood pressure in the ER patient was found to be 70s, and IV fluid boluses were given. Blood pressure has improved to low 90s. Patient denies overdosing with his blood pressure medication. Asked whether the voices were telling him to take extra medicine, patient denies any such commands. Patient continues to be dizzy and on continuous IV fluid. Denies cough, urinary symptoms, diarrhea, vomiting, fever or chills. Denies any chest pain, shortness of breath or palpitations. Present on Admission - Present on Admission Any Indicators Present on Admission: No Review of Systems - Review of Systems All systems: reviewed and no additional remarkable complaints except Review of Systems: as per HPI Past Patient History - Infectious Disease Hx of Infectious Diseases: None - Tetanus Immunizations Tetanus Immunization: Unknown - Past Medical History & Family History Past Medical History?: Yes Past Family History: Reviewed and not pertinent - Past Social History Alcohol: None Drugs: Denies - CARDIAC Hx Cardiac Disorders: Yes - PULMONARY Hx Respiratory Disorders: No - NEUROLOGICAL Hx Parkinson's Disease: Yes - HEENT Hx HEENT Problems: No - RENAL Hx Chronic Kidney Disease: No - ENDOCRINE/METABOLIC Hx Endocrine Disorders: Yes - HEMATOLOGICAL/ONCOLOGICAL Hx Human Immunodeficiency Virus (HIV): No - INTEGUMENTARY Hx Dermatological Problems: No Other/Comment: pt has IAD r/t incont of bowel - MUSCULOSKELETAL/RHEUMATOLOGICAL Hx Musculoskeletal Disorders: Yes Hx Falls: No - GASTROINTESTINAL Hx Gastrointestinal Disorders: No - GENITOURINARY/GYNECOLOGICAL Hx Genitourinary Disorders: No - PSYCHIATRIC Hx Schizophrenia: Yes - SURGICAL HISTORY Hx Tonsillectomy: Yes - ANESTHESIA Hx Anesthesia: Yes Hx Anesthesia Reactions: No Hx Malignant Hyperthermia: No Meds Allergies/Adverse Reactions: Allergies Allergy/AdvReac Type Severity Reaction Status Date / Time No Known Allergies Allergy Verified 08/22/18 10:42 Physical Exam - Constitutional Appears: Well, No Acute Distress - Head Exam Head Exam: ATRAUMATIC, NORMAL INSPECTION, NORMOCEPHALIC - Eye Exam Eye Exam: EOMI, Normal appearance, PERRL Pupil Exam: NORMAL ACCOMODATION, PERRL - ENT Exam ENT Exam: Mucous Membranes Moist, Normal Exam - Neck Exam Neck exam: Positive for: Normal Inspection - Respiratory Exam Respiratory Exam: Clear to Auscultation Bilateral, NORMAL BREATHING PATTERN - Cardiovascular Exam Cardiovascular Exam: REGULAR RHYTHM, +S1, +S2 - GI/Abdominal Exam GI & Abdominal Exam: Normal Bowel Sounds, Soft. absent: Tenderness - Extremities Exam Extremities exam: Positive for: normal capillary refill, normal inspection - Back Exam Back exam: NORMAL INSPECTION - Neurological Exam Neurological exam: Alert, CN II-XII Intact, Normal Gait, Oriented x3, Reflexes Normal - Psychiatric Exam Psychiatric exam: Normal Affect, Normal Mood - Skin Skin Exam: Dry, Intact, Normal Color, Warm Results - Vital Signs Recent Vital Signs: Last Vital Signs Temp 97.8 F 08/22/18 14:49 Pulse 87 08/22/18 14:49 Resp 20 08/22/18 14:49 BP 103/56 L 08/22/18 14:49 Pulse Ox 100 08/22/18 14:49 - Labs Result Diagrams: 08/22/18 11:16 08/22/18 11:16 Labs: Laboratory Results - last 24 hr 08/22/18 08/22/18 08/22/18 10:43 11:16 11:16 WBC 7.4 RBC 3.90 L Hgb 11.8 L Hct 35.3 MCV 90.4 MCH 30.2 MCHC 33.4 RDW 13.3 Plt Count 467 H D MPV 7.2 Neut % (Auto) 68.2 Lymph % (Auto) 22.7 Patrick % (Auto) 7.0 Eos % (Auto) 1.5 Baso % (Auto) 0.6 Neut # (Auto) 5.0 Lymph # (Auto) 1.7 Patrick # (Auto) 0.5 Eos # (Auto) 0.1 Baso # (Auto) 0.0 PT INR APTT D-Dimer, Quantitative Sodium 137 Potassium 4.8 Chloride 104 Carbon Dioxide 22 Anion Gap 16 BUN 29 H Creatinine 1.4 Est GFR ( Amer) > 60 Est GFR (Non-Af Amer) 51 POC Glucose (mg/dL) 347 H Random Glucose 328 H Calcium 8.9 Total Bilirubin 0.4 AST 23 ALT 14 L D Alkaline Phosphatase 91 Total Creatine Kinase 83 Troponin I 0.0130 NT-Pro-B Natriuret Pep 429 Total Protein 7.2 Albumin 3.6 Globulin 3.6 Albumin/Globulin Ratio 1.0 Urine Color Urine Clarity Urine pH Ur Specific Austin Urine Protein Urine Glucose (UA) Urine Ketones Urine Blood Urine Nitrate Urine Bilirubin Urine Urobilinogen Ur Leukocyte Esterase Urine RBC (Auto) Urine Microscopic WBC Amorphous Sediment Urine Bacteria Urine Opiates Screen Urine Methadone Screen Ur Barbiturates Screen Ur Phencyclidine Scrn Ur Amphetamines Screen U Benzodiazepines Scrn U Oth Cocaine Metabols U Cannabinoids Screen Alcohol, Quantitative < 10 08/22/18 08/22/18 08/22/18 11:16 14:35 14:35 WBC RBC Hgb Hct MCV MCH MCHC RDW Plt Count MPV Neut % (Auto) Lymph % (Auto) Patrick % (Auto) Eos % (Auto) Baso % (Auto) Neut # (Auto) Lymph # (Auto) Patrick # (Auto) Eos # (Auto) Baso # (Auto) PT 10.9 INR 1.0 APTT 34.7 D-Dimer, Quantitative 200 Sodium Potassium Chloride Carbon Dioxide Anion Gap BUN Creatinine Est GFR ( Amer) Est GFR (Non-Af Amer) POC Glucose (mg/dL) Random Glucose Calcium Total Bilirubin AST ALT Alkaline Phosphatase Total Creatine Kinase Troponin I NT-Pro-B Natriuret Pep Total Protein Albumin Globulin Albumin/Globulin Ratio Urine Color Yellow Urine Clarity Turbid Urine pH 6.0 Ur Specific Austin 1.009 Urine Protein 30 Urine Glucose (UA) 50 Urine Ketones Negative Urine Blood Small Urine Nitrate Negative Urine Bilirubin Negative Urine Urobilinogen 0.2-1.0 Ur Leukocyte Esterase Large Urine RBC (Auto) 214 H Urine Microscopic WBC 5258 H Amorphous Sediment Occ H Urine Bacteria Many H Urine Opiates Screen Negative Urine Methadone Screen Negative Ur Barbiturates Screen Negative Ur Phencyclidine Scrn Negative Ur Amphetamines Screen Negative U Benzodiazepines Scrn Negative U Oth Cocaine Metabols Negative U Cannabinoids Screen Negative Alcohol, Quantitative 08/22/18 14:35 WBC RBC Hgb Hct MCV MCH MCHC RDW Plt Count MPV Neut % (Auto) Lymph % (Auto) Patrick % (Auto) Eos % (Auto) Baso % (Auto) Neut # (Auto) Lymph # (Auto) Patrick # (Auto) Eos # (Auto) Baso # (Auto) PT INR APTT D-Dimer, Quantitative Sodium Potassium Chloride Carbon Dioxide Anion Gap BUN Creatinine Est GFR ( Amer) Est GFR (Non-Af Amer) POC Glucose (mg/dL) 246 H Random Glucose Calcium Total Bilirubin AST ALT Alkaline Phosphatase Total Creatine Kinase Troponin I NT-Pro-B Natriuret Pep Total Protein Albumin Globulin Albumin/Globulin Ratio Urine Color Urine Clarity Urine pH Ur Specific [place] Urine Protein Urine Glucose (UA) Urine Ketones Urine Blood Urine Nitrate Urine Bilirubin Urine Urobilinogen Ur Leukocyte Esterase Urine RBC (Auto) Urine Microscopic WBC Amorphous Sediment Urine Bacteria Urine Opiates Screen Urine Methadone Screen Ur Barbiturates Screen Ur Phencyclidine Scrn Ur Amphetamines Screen U Benzodiazepines Scrn U Oth Cocaine Metabols U Cannabinoids Screen Alcohol, Quantitative - EKG Data EKG Interpreted by: Other EKG shows normal: Sinus rhythm Rate: Normal - Impressions Impression: Left anterior Fasicular Block. QTc 495. - Imaging and Cardiology CT scan - head Status: Report reviewed by me Additional comment: Date of service: 08/22/2018 PROCEDURE: CT HEAD WITHOUT CONTRAST. HISTORY: Dizziness COMPARISON: Comparison made with CT scan brain 03/16/2014. TECHNIQUE: Axial computed tomography images were obtained through the head/brain without intravenous contrast. Radiation dose: Total exam DLP = 0.0 mGy-cm. This CT exam was performed using one or more of the following dose reduction techniques: Automated exposure control, adjustment of the mA and/or kV according to patient size, and/or use of iterative reconstruction technique. FINDINGS: HEMORRHAGE: Parenchymal, subarachnoid nor extra-axial hemorrhage. BRAIN: There are minor chronic periventricular white matter ischemic changes seen extending peripherally into the deep white matter both cerebral hemispheres. Note that the possibility of a small hyperacute infarct cannot be excluded on this study. There is central volume loss evidenced by disproportion enlargement of the ventricles compared sulci. Questionable small incidental pineal gland cyst VENTRICLES: No obstructive hydrocephalus. Re demonstrated is slight asymmetric enlargement of the right lateral ventricle compared the left likely underlying anatomic variant CALVARIUM: Calvarium intact PARANASAL SINUSES: Unremarkable as visualized. No significant inflammatory changes. MASTOID AIR CELLS: Unremarkable as visualized. No inflammatory changes. OTHER FINDINGS: Changes of bilateral cataract surgery IMPRESSION: No acute intracranial hemorrhage. Mild chronic periventricular white matter ischemic changes. Moderate central volume loss. Chest x-ray Status: Report reviewed by me Additional comment: Date of service: 08/22/2018 HISTORY: SOB COMPARISON: Comparison made with chest radiograph dated 10/14/2019 FINDINGS: LUNGS: Linear density left lung base likely represents chronic scar/fibrosis PLEURA: No significant pleural effusion identified, no pneumothorax apparent. CARDIOVASCULAR: No aortic atherosclerotic calcification present. Normal cardiac size. No pulmonary vascular congestion. OSSEOUS STRUCTURES: No significant abnormalities. VISUALIZED UPPER ABDOMEN: Normal. OTHER FINDINGS: None. IMPRESSION: Findings consistent with minor linear chronic scarring and/or fibrosis left lung base Assessment & Plan (1) Hypotension Assessment and Plan: H/O HTN on Antihypertensive Medication Status: Acute (2) Schizophrenia, paranoid, chronic Assessment and Plan: with Auditory Hallucinations Continue home medications Psych Consult Status: Chronic Priority: Medium (3) Diabetes mellitus with hyperglycemia Assessment and Plan: Continue Levemir and Metformin Accu-check with Humalog SS coverage Status: Acute
[2018-08-22 19:43] VITALS: BMI 28.0
[2018-08-22] MEDS: Pravastatin Sodium 20 MG TAB PO SCH (21:44)
[2018-08-22] MEDS: Sodium Chloride 0.9% 1,000 ML IV SCH (21:45)
[2018-08-22] MEDS: Insulin Detemir 100 Units/ml Inj SC SCH (21:46)
--- NOTE | 2018-08-22 22:24 | CARD ---
APPROVED REPORT Date of service: 08/22/2018 EKG Measurement Heart [id number] <Conclusion> Normal sinus rhythm Pulmonary disease pattern Right bundle branch block Left anterior fascicular block Bifascicular block Moderate voltage criteria for LVH, may be normal variant Abnormal ECG
[2018-08-22] MEDS: Insulin Lispro (humaLOG) 100 Units/ml Inj SC SCH (22:34)
[2018-08-23] MEDS: Insulin Lispro (humaLOG) 100 Units/ml Inj SC SCH ×4 (06:15→22:19)
[2018-08-23] MEDS: Multivitamin With Minerals Tab PO SCH (08:23)
[2018-08-23] MEDS: Sodium Chloride 0.9% 1,000 ML IV SCH ×2 (08:25→16:47)
[2018-08-23] MEDS: Aspirin 325 mg EC Tablets PO SCH (08:29)
[2018-08-23] MEDS: Pravastatin Sodium 20 MG TAB PO SCH (17:02)
--- NOTE | 2018-08-23 19:25 | CP.PCM.CON ---
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 pt denies desire to harmself, rep orts 35year hx of schizophrenia. mulitple admissions various hospitalizations, denies past hx of suicide or homicidal thoughts. Review of Systems - Psychiatric Psychiatric: Depression, Hallucinations Additional comments: auditory hallucinations upon admission, currently denies, reports voices can be men or women, generally they are commentary, at times command as in day of admission. Past Patient History - Infectious Disease Hx of Infectious Diseases: None - Tetanus Immunizations Tetanus Immunization: Unknown - Past Medical History & Family History Past Medical History?: Yes - Past Social History Smoking Status: Never Smoked - CARDIAC Hx Cardiac Disorders: Yes Hx Hypercholesterolemia: Yes Hx Hypertension: Yes - PULMONARY Hx Respiratory Disorders: No - NEUROLOGICAL Hx Neurological Disorder: Yes Hx Parkinson's Disease: Yes - HEENT Hx HEENT Problems: No Hx Cataracts: Yes (had cataract surgery) Other/Comment: wears glasses for reading - RENAL Hx Chronic Kidney Disease: No - ENDOCRINE/METABOLIC Hx Endocrine Disorders: Yes Hx Diabetes Mellitus Type 2: Yes - HEMATOLOGICAL/ONCOLOGICAL Hx Blood Disorders: No Hx Human Immunodeficiency Virus (HIV): No - INTEGUMENTARY Hx Dermatological Problems: No Other/Comment: pt has IAD r/t incont of bowel - MUSCULOSKELETAL/RHEUMATOLOGICAL Hx Musculoskeletal Disorders: No Hx Falls: No - GASTROINTESTINAL Hx Gastrointestinal Disorders: No - GENITOURINARY/GYNECOLOGICAL Hx Genitourinary Disorders: No - PSYCHIATRIC Hx Psychophysiologic Disorder: Yes Hx Anxiety: Yes Hx Depression: Yes (previous taking lexapro 20mg po taken day of admd3) Hx Schizophrenia: Yes (taking seroquel 100mg po hs) Hx Substance Use: No Other/Comment: pt hears voices at times - SURGICAL HISTORY Hx Surgeries: Yes Hx Cataract Extraction: Yes Hx Tonsillectomy: Yes - ANESTHESIA Hx Anesthesia: Yes Hx Anesthesia Reactions: No Hx Malignant Hyperthermia: No Meds Allergies/Adverse Reactions: Allergies Allergy/AdvReac Type Severity Reaction Status Date / Time No Known Allergies Allergy Verified 08/22/18 10:42 - Medications Medications: Current Medications Acetaminophen (Tylenol 325mg Tab) 650 mg PO Q6 PRN PRN Reason: Pain, moderate (4-7) Last Admin: 08/23/18 14:58 Dose: 650 mg Aspirin (Ecotrin) 325 mg PO DAILY [facility] Last Admin: 08/23/18 08:29 Dose: 325 mg Benztropine Mesylate (Cogentin) 1 mg PO DAILY [facility] Last Admin: 08/23/18 08:26 Dose: 1 mg Escitalopram Oxalate (Lexapro) 20 mg PO DAILY [facility] Last Admin: 08/23/18 08:24 Dose: 20 mg Folic Acid (Folic Acid) 1 mg PO DAILY [facility] Last Admin: 08/23/18 08:23 Dose: 1 mg Sodium Chloride (Sodium Chloride 0.9%) 1,000 mls @ 100 mls/hr IV .Q10H [facility] Stop: 08/23/18 20:16 Last Admin: 08/23/18 16:47 Dose: 100 mls/hr Insulin Detemir (Levemir) 50 units SC [facility] Last Admin: 08/22/18 21:46 Dose: 50 units Insulin Human Lispro (Humalog) 0 units SC ACCU-CHECK [facility]; Protocol Last Admin: 08/23/18 16:49 Dose: Not Given Metformin HCl (Glucophage) 1,000 mg PO BID [facility] Last Admin: 08/23/18 16:50 Dose: 1,000 mg Multivitamins/Minerals (Therapeutic-M Tab) 1 tab PO DAILY [facility] Last Admin: 08/23/18 08:23 Dose: 1 tab Pravastatin Sodium (Pravachol) 20 mg PO QPM [facility] Last Admin: 08/23/18 17:02 Dose: 20 mg Quetiapine Fumarate (Seroquel) 100 mg PO [facility] Last Admin: 08/22/18 21:44 Dose: 100 mg Physical Exam - Psychiatric Exam Additional comments: seen laying hospital bed, fair eye contact, speech varied rate lower tone, thought process some blocking, mood reported as being okay depression controlled when taking lexapro, affect is mood congruent, denies suicidal homicidal ideati on, some paranoia, denies current audiohallucinations, denies other forms hallucinations, denies gee vacillations in mood, denies notable impulsive behavior, i/j fair, some psychomotor retardation, negative visible eps, denies chest pain, denies sob, denies palpitations. when did not feel well allowed friend to take him to hospital Results - Vital Signs Recent Vital Signs: Last Vital Signs Temp 98.8 F 08/23/18 15:55 Pulse 80 08/23/18 15:55 Resp 20 08/23/18 15:55 BP 116/72 08/23/18 15:55 Pulse Ox 100 08/23/18 15:55 - Labs Result Diagrams: 08/22/18 11:16 08/22/18 11:16 Labs: Laboratory Results - last 24 hr 08/22/18 08/23/18 08/23/18 21:27 05:30 11:41 POC Glucose (mg/dL) 238 H 123 H 141 H 08/23/18 16:42 POC Glucose (mg/dL) 126 H Assessment & Plan (1) Schizophrenia, paranoid, chronic Status: Chronic Priority: Medium Comment: reportedly 35 year history of schizophrenia - Assessment and Plan (Free Text) Assessment: pt is receiving seroquel 100mg po hs, pt's qtc was 495 ms upon admission, obtain repeat ekg in am [id number] to reassess qtc. restart pt on lexapro 20mg po, pt to get up slowly, falls precautions, assess pt ept/aims scale, assess pt for vacillations in mood with re-starting of lexapro (pt had taken on day of admssion), pt has been [place] [facility] [place] tomy paulino np, upon discharge to follow up [facility] will review qtc in am thank you for allowing psychiatry to be part of the patient's treatment plan - Date & Time Date: 08/23/18 Time: 19:39
[2018-08-23] MEDS: Insulin Detemir 100 Units/ml Inj SC SCH (22:21)
[2018-08-23] MEDS ORDERED: Alum-Mag Hydrox-Simethicone Susp (30 mL) PO ONE (23:29)
--- NOTE | 2018-08-24 04:16 | CP.PCM.PN ---
Subjective - Date & Time of Evaluation Date of Evaluation: 08/23/18 Objective - Vital Signs/Intake and Output Vital Signs (last 24 hours): Temp Pulse Resp BP Pulse Ox 98.9 F 88 18 131/61 97 08/24/18 00:33 08/24/18 00:33 08/24/18 00:33 08/24/18 00:33 08/24/18 00:33 - Medications Medications: Current Medications Acetaminophen (Tylenol 325mg Tab) 650 mg PO Q6 PRN PRN Reason: Pain, moderate (4-7) Last Admin: 08/23/18 14:58 Dose: 650 mg Aspirin (Ecotrin) 325 mg PO DAILY [facility] Last Admin: 08/23/18 08:29 Dose: 325 mg Benztropine Mesylate (Cogentin) 1 mg PO DAILY [facility] Last Admin: 08/23/18 08:26 Dose: 1 mg Escitalopram Oxalate (Lexapro) 20 mg PO DAILY [facility] Last Admin: 08/23/18 08:24 Dose: 20 mg Folic Acid (Folic Acid) 1 mg PO DAILY [facility] Last Admin: 08/23/18 08:23 Dose: 1 mg Insulin Detemir (Levemir) 50 units SC HS [facility] Last Admin: 08/23/18 22:21 Dose: 50 units Insulin Human Lispro (Humalog) 0 units SC ACCU-CHECK [facility]; Protocol Last Admin: 08/23/18 22:19 Dose: Not Given Metformin HCl (Glucophage) 1,000 mg PO BID [facility] Last Admin: 08/23/18 16:50 Dose: 1,000 mg Multivitamins/Minerals (Therapeutic-M Tab) 1 tab PO DAILY [facility] Last Admin: 08/23/18 08:23 Dose: 1 tab Pravastatin Sodium (Pravachol) 20 mg PO QPM [facility] Last Admin: 08/23/18 17:02 Dose: 20 mg Quetiapine Fumarate (Seroquel) 100 mg PO HS [facility] Last Admin: 08/23/18 21:06 Dose: 100 mg - Labs Labs: 08/22/18 11:16 08/22/18 11:16 PT 10.9 Seconds (9.8-13.1) 08/22/18 11:16 INR 1.0 08/22/18 11:16 APTT 34.7 Seconds (25.6-37.1) 08/22/18 11:16
[2018-08-24] MEDS: Insulin Lispro (humaLOG) 100 Units/ml Inj SC SCH ×4 (06:40→23:00)
[2018-08-24] MEDS: Aspirin 325 mg EC Tablets PO SCH (09:37)
[2018-08-24] MEDS: Multivitamin With Minerals Tab PO SCH (09:38)
--- NOTE | 2018-08-24 14:20 | CP.PCM.PN ---
Subjective - Date & Time of Evaluation Date of Evaluation: 08/24/18 Objective - Vital Signs/Intake and Output Vital Signs (last 24 hours): Temp Pulse Resp BP Pulse Ox 97.5 F L 72 18 157/72 H 99 08/24/18 12:18 08/24/18 12:18 08/24/18 12:18 08/24/18 12:18 08/24/18 12:18 - Medications Medications: Current Medications Acetaminophen (Tylenol 325mg Tab) 650 mg PO Q6 PRN PRN Reason: Pain, moderate (4-7) Last Admin: 08/23/18 14:58 Dose: 650 mg Aspirin (Ecotrin) 325 mg PO DAILY [facility] Last Admin: 08/24/18 09:37 Dose: 325 mg Benztropine Mesylate (Cogentin) 1 mg PO DAILY [facility] Last Admin: 08/24/18 09:36 Dose: 1 mg Escitalopram Oxalate (Lexapro) 20 mg PO DAILY [facility] Last Admin: 08/24/18 09:38 Dose: 20 mg Folic Acid (Folic Acid) 1 mg PO DAILY [facility] Last Admin: 08/24/18 09:37 Dose: 1 mg Insulin Detemir (Levemir) 50 units SC HS [facility] Last Admin: 08/23/18 22:21 Dose: 50 units Insulin Human Lispro (Humalog) 0 units SC ACCU-CHECK [facility]; Protocol Last Admin: 08/24/18 13:33 Dose: 1 unit Metformin HCl (Glucophage) 1,000 mg PO BID [facility] Last Admin: 08/24/18 09:37 Dose: 1,000 mg Multivitamins/Minerals (Therapeutic-M Tab) 1 tab PO DAILY [facility] Last Admin: 08/24/18 09:38 Dose: 1 tab Pravastatin Sodium (Pravachol) 20 mg PO QPM [facility] Last Admin: 08/23/18 17:02 Dose: 20 mg Quetiapine Fumarate (Seroquel) 100 mg PO HS [facility] Last Admin: 08/23/18 21:06 Dose: 100 mg - Labs Labs: 08/22/18 11:16 08/22/18 11:16 PT 10.9 Seconds (9.8-13.1) 08/22/18 11:16 INR 1.0 08/22/18 11:16 APTT 34.7 Seconds (25.6-37.1) 08/22/18 11:16
[2018-08-24] MEDS: Pravastatin Sodium 20 MG TAB PO SCH (17:03)
[2018-08-24] MEDS: Alum-Mag Hydrox-Simethicone Susp (30 mL) PO PRN (20:18)
[2018-08-24] MEDS: Insulin Detemir 100 Units/ml Inj SC SCH (21:48)
[2018-08-25] MEDS: Aspirin 325 mg EC Tablets PO SCH (08:41)
[2018-08-25] MEDS: Insulin Lispro (humaLOG) 100 Units/ml Inj SC SCH ×3 (08:42→16:45)
[2018-08-25] MEDS: Multivitamin With Minerals Tab PO SCH (08:43)
[2018-08-25] MEDS: Alum-Mag Hydrox-Simethicone Susp (30 mL) PO PRN (11:58)
--- NOTE | 2018-08-25 13:07 | CP.PCM.PCO ---
Assessment & Plan - Assessment and Plan (Free Text) Assessment: pt. seen and examined doing well this morning; + reports dizziness while ambulating pt. seen by for f/u today; Recommended Geropsych for med monitoring; pt. agrees to Geropsych SW notified pt. medically cleared for Geropsych Above d/w who agrees with plan
--- NOTE | 2018-08-25 13:33 | CP.PCM.CON ---
History of Present Illness - History of Present Illness History of Present Illness: pt is 62 ys old male with long history of schizoaffective disorder , DM 2, and hypertension presented to the ER with this dizziness described as lightheadedness worse on sitting from lying down. Patient admits taking extra Seroquel after voices told him to take extra dose. pt reported he has hx of multiple psychiatric hospitalizations currently following up at [facility], pt stated that for the past few weeks he has been experiencing more auditory hallucinations/ command type telling him at times to leave the house and directing the way he takes his medications, pt currently lives by himself has no social support, reported feeling anxious at times because of the increase in the auditory hallucinations Past Patient History - Infectious Disease Hx of Infectious Diseases: None - Tetanus Immunizations Tetanus Immunization: Unknown - Past Medical History & Family History Past Medical History?: Yes Past Family History: Reviewed and not pertinent - Past Social History Alcohol: None Drugs: Denies - CARDIAC Hx Cardiac Disorders: Yes - PULMONARY Hx Respiratory Disorders: No - NEUROLOGICAL Hx Parkinson's Disease: Yes - HEENT Hx HEENT Problems: No - RENAL Hx Chronic Kidney Disease: No - ENDOCRINE/METABOLIC Hx Endocrine Disorders: Yes - HEMATOLOGICAL/ONCOLOGICAL Hx Human Immunodeficiency Virus (HIV): No - INTEGUMENTARY Hx Dermatological Problems: No Other/Comment: pt has IAD r/t incont of bowel - MUSCULOSKELETAL/RHEUMATOLOGICAL Hx Musculoskeletal Disorders: Yes Hx Falls: No - GASTROINTESTINAL Hx Gastrointestinal Disorders: No - GENITOURINARY/GYNECOLOGICAL Hx Genitourinary Disorders: No - PSYCHIATRIC Hx Schizophrenia: Yes - SURGICAL HISTORY Hx Tonsillectomy: Yes - ANESTHESIA Hx Anesthesia: Yes Hx Anesthesia Reactions: No Hx Malignant Hyperthermia: No Meds Allergies/Adverse Reactions: Allergies Allergy/AdvReac Type Severity Reaction Status Date / Time No Known Allergies Allergy Verified 08/22/18 10:42 - Medications Medications: Current Medications Acetaminophen (Tylenol 325mg Tab) 650 mg PO Q6 PRN PRN Reason: Pain, moderate (4-7) Last Admin: 08/25/18 08:44 Dose: 650 mg Al Hydrox/Mg Hydrox/Simethicone (Maalox Plus 30 Ml) 30 ml PO Q6 PRN PRN Reason: Indigestion / Heartburn Last Admin: 08/25/18 11:58 Dose: 30 ml Aspirin (Ecotrin) 325 mg PO DAILY [facility] Last Admin: 08/25/18 08:41 Dose: 325 mg Benztropine Mesylate (Cogentin) 1 mg PO DAILY [facility] Last Admin: 08/25/18 08:41 Dose: 1 mg Escitalopram Oxalate (Lexapro) 20 mg PO DAILY [facility] Last Admin: 08/25/18 08:43 Dose: 20 mg Folic Acid (Folic Acid) 1 mg PO DAILY [facility] Last Admin: 08/25/18 08:41 Dose: 1 mg Insulin Detemir (Levemir) 50 units SC [facility] Last Admin: 08/24/18 21:48 Dose: 50 units Insulin Human Lispro (Humalog) 0 units SC ACCU-CHECK [facility]; Protocol Last Admin: 08/25/18 11:56 Dose: Not Given Metformin HCl (Glucophage) 1,000 mg PO BID [facility] Last Admin: 08/25/18 08:42 Dose: 1,000 mg Multivitamins/Minerals (Therapeutic-M Tab) 1 tab PO DAILY [facility] Last Admin: 08/25/18 08:43 Dose: 1 tab Pravastatin Sodium (Pravachol) 20 mg PO QPM [facility] Last Admin: 08/24/18 17:03 Dose: 20 mg Quetiapine Fumarate (Seroquel) 100 mg PO [facility] Last Admin: 08/24/18 21:49 Dose: 100 mg Results - Vital Signs Recent Vital Signs: Last Vital Signs Temp 98.0 F 08/25/18 12:00 Pulse 64 08/25/18 12:00 Resp 18 08/25/18 12:00 BP 121/57 L 08/25/18 12:00 Pulse Ox 94 L 08/25/18 12:00 - Labs Result Diagrams: 08/22/18 11:16 08/22/18 11:16 Labs: Laboratory Results - last 24 hr 08/24/18 08/24/18 08/25/18 16:26 21:38 05:45 POC Glucose (mg/dL) 97 113 H 70 08/25/18 08/25/18 06:37 10:47 POC Glucose (mg/dL) 112 H 145 H Assessment & Plan - Assessment and Plan (Free Text) Assessment: schizoaffective disorder bipolar type Plan: pt would benefit from admission to psychiatry for medication stabilization as he currently is experiencing increase in the command auditory hallucinations pt also would benefit from arrangement for social economist on discharge pt alert awake and oriented to person and place, agreed to sign for voluntary admission to psychiatry upon medical clearance
[2018-08-25 16:03] VITALS: BP 137/71; PULSE 60; RESP 20; TEMP 98.2; O2SAT 96
[2018-08-25] MEDS: Pravastatin Sodium 20 MG TAB PO SCH (17:32)
[2018-08-26 00:49] LABS: URINE BACTERIA MOD (<OCC); URINE BILIRUBIN NEGATIVE (NEGATIVE); URINE BLOOD SMALL (NEGATIVE); URINE CLARITY CLOUDY (Clear); URINE COLOR YELLOW (YELLOW); URINE GLUCOSE (UA) NEG (NEGATIVE); URINE LEUKOCYTE ESTERASE LARGE Leu/uL (Negative); URINE PROTEIN NEGATIVE (NEGATIVE); URINE UROBILINOGEN 0.2-1.0 mg/dL (0.2-1.0); WBC CLUMPS MANY /hpf
--- NOTE | 2018-08-26 16:26 | CP.PCM.DIS ---
Provider - Provider Date of Admission: 08/24/18 15:56 Attending physician: Beena Pierce MD Consults: 08/23/18 17:58 Psychiatry Consult Routine Comment: Consulting Provider: Domo Kimball Consulting Physician: Domo Kimball Reason for Consult: Schizoaffective disorder 08/25/18 13:16 Psychiatry Consult Routine Comment: Consulting Provider: Stephie Chan Consulting Physician: Stephie Chan Reason for Consult: depression, schizophrenia, auditory hallucinations Time Spent in preparation of Discharge (in minutes): 25 Diagnosis - Discharge Diagnosis (1) Hypotension Status: Acute Comment: Most likely due to drug Overdose (2) Schizophrenia, paranoid, chronic Status: Chronic Priority: Medium (3) Diabetes mellitus with hyperglycemia Status: Acute Hospital Course - Lab Results Lab Results: Most Recent Lab Values WBC 7.4 K/uL (4.8-10.8) 08/22/18 11:16 RBC 3.90 Mil/uL (4.40-5.90) L 08/22/18 11:16 Hgb 11.8 g/dL (12.0-18.0) L 08/22/18 11:16 Hct 35.3 % (35.0-51.0) 08/22/18 11:16 MCV 90.4 fl (80.0-94.0) 08/22/18 11:16 MCH 30.2 pg (27.0-31.0) 08/22/18 11:16 MCHC 33.4 g/dL (33.0-37.0) 08/22/18 11:16 RDW 13.3 % (11.5-14.5) 08/22/18 11:16 Plt Count 467 K/uL (130-400) H D 08/22/18 11:16 MPV 7.2 fl (7.2-11.7) 08/22/18 11:16 Neut % (Auto) 68.2 % (50.0-75.0) 08/22/18 11:16 Lymph % (Auto) 22.7 % (20.0-40.0) 08/22/18 11:16 [place] % (Auto) 7.0 % (0.0-10.0) 08/22/18 11:16 Eos % (Auto) 1.5 % (0.0-4.0) 08/22/18 11:16 Baso % (Auto) 0.6 % (0.0-2.0) 08/22/18 11:16 Neut # (Auto) 5.0 K/uL (1.8-7.0) 08/22/18 11:16 Lymph # (Auto) 1.7 K/uL (1.0-4.3) 08/22/18 11:16 [place] # (Auto) 0.5 K/uL (0.0-0.8) 08/22/18 11:16 Eos # (Auto) 0.1 K/uL (0.0-0.7) 08/22/18 11:16 Baso # (Auto) 0.0 K/uL (0.0-0.2) 08/22/18 11:16 PT 10.9 Seconds (9.8-13.1) 08/22/18 11:16 INR 1.0 08/22/18 11:16 APTT 34.7 Seconds (25.6-37.1) 08/22/18 11:16 D-Dimer, Quantitative 200 ng/mlDDU (0-230) 08/22/18 11:16 Sodium 137 mmol/l (132-148) 08/22/18 11:16 Potassium 4.8 MMOL/L (3.6-5.0) 08/22/18 11:16 Chloride 104 mmol/L (98-107) 08/22/18 11:16 Carbon Dioxide 22 mmol/L (22-30) 08/22/18 11:16 Anion Gap 16 (10-20) 08/22/18 11:16 BUN 29 mg/dl (9-20) H 08/22/18 11:16 Creatinine 1.4 mg/dl (0.8-1.5) 08/22/18 11:16 Est GFR ( Amer) > 60 08/22/18 11:16 Est GFR (Non-Af Amer) 51 08/22/18 11:16 POC Glucose (mg/dL) 153 mg/dL (65-110) H 08/25/18 16:24 Random Glucose 328 mg/dL (75-110) H 08/22/18 11:16 Calcium 8.9 mg/dL (8.4-10.2) 08/22/18 11:16 Total Bilirubin 0.4 mg/dl (0.2-1.3) 08/22/18 11:16 AST 23 U/L (17-59) 08/22/18 11:16 ALT 14 U/L (21-72) L D 08/22/18 11:16 Alkaline Phosphatase 91 U/L (38-126) 08/22/18 11:16 Total Creatine Kinase 83 U/L (55-170) 08/22/18 11:16 Troponin I 0.0130 ng/mL (0.00-0.120) 08/22/18 11:16 NT-Pro-B Natriuret Pep 429 pg/ml (0-900) 08/22/18 11:16 Total Protein 7.2 G/DL (6.3-8.2) 08/22/18 11:16 Albumin 3.6 g/dL (3.5-5.0) 08/22/18 11:16 Globulin 3.6 gm/dL (2.2-3.9) 08/22/18 11:16 Albumin/Globulin Ratio 1.0 (1.0-2.1) 08/22/18 11:16 Urine Color Yellow (YELLOW) 08/26/18 00:30 Urine Clarity Cloudy (Clear) 08/26/18 00:30 Urine pH 7.0 (5.0-8.0) 08/26/18 00:30 Ur Specific [place] < 1.005 (1.003-1.030) 08/26/18 00:30 Urine Protein Negative mg/dL (NEGATIVE) 08/26/18 00:30 Urine Glucose (UA) Neg mg/dL (NEGATIVE) 08/26/18 00:30 Urine Ketones Negative mg/dL (NEGATIVE) 08/26/18 00:30 Urine Blood Small (NEGATIVE) 08/26/18 00:30 Urine Nitrate Negative (NEGATIVE) 08/26/18 00:30 Urine Bilirubin Negative (NEGATIVE) 08/26/18 00:30 Urine Urobilinogen 0.2-1.0 mg/dL (0.2-1.0) 08/26/18 00:30 Ur Leukocyte Esterase Large [place]ma/uL (Negative) 08/26/18 00:30 Urine RBC (Auto) 74 /hpf (0-3) H 08/26/18 00:30 Urine WBC Clumps (Auto) Many /hpf (NONE) H 08/26/18 00:30 Urine Microscopic WBC 354 /hpf (0-5) H 08/26/18 00:30 Amorphous Sediment Occ /ul (<OCC) H 08/22/18 14:35 Urine Bacteria Mod (<OCC) H 08/26/18 00:30 Urine Yeast (Budding) Many /hpf (NEGATIVE) H 08/26/18 00:30 Urine Opiates Screen Negative (NEGATIVE) 08/22/18 14:35 Urine Methadone Screen Negative (NEGATIVE) 08/22/18 14:35 Ur Barbiturates Screen Negative (NEGATIVE) 08/22/18 14:35 Ur Phencyclidine Scrn Negative (NEGATIVE) 08/22/18 14:35 Ur Amphetamines Screen Negative (NEGATIVE) 08/22/18 14:35 U Benzodiazepines Scrn Negative (NEGATIVE) 08/22/18 14:35 U Oth Cocaine Metabols Negative (NEGATIVE) 08/22/18 14:35 U Cannabinoids Screen Negative (NEGATIVE) 08/22/18 14:35 Alcohol, Quantitative < 10 mg/dl (0-10) 08/22/18 11:16 Discharge Exam - Head Exam Head Exam: ATRAUMATIC, NORMAL INSPECTION, NORMOCEPHALIC Discharge Plan - Follow Up Plan Condition: STABLE Disposition: OTHER INSTITUTION Instructions: Dizziness, Nonvertigo, (DC), Schizophrenia (DC), Low Blood Pressure (DC) Additional Instructions: Followed by Dr Chan in [facility]. Referrals: Tyree Arambula MD [Family Provider] -
== END 2018-08-25 18:40 | DRG 449 ==
LOC: H.ER 10:27 → H.ERHOLD 14:06 → INTOOBSV 14:06 → UNDOADMOB 14:06 → OBSVTOIN 14:06 → H.TEL 16:47 → H.ERHOLD 16:47 → OBSVTOIN 08-24 15:56 → H.TEL 08-24 15:56
PROVIDERS: ADMIT Internal Medicine; ATTEND Internal Medicine
DX: T43.594A Poisoning by other antipsychotics and neuroleptics, undetermined, initial encounter (principal); F25.0 Schizoaffective disorder, bipolar type; E11.65 Type 2 diabetes mellitus with hyperglycemia; I95.9 Hypotension, unspecified; G20 Parkinson's disease; F41.9 Anxiety disorder, unspecified; I10 Essential (primary) hypertension; E78.00 Pure hypercholesterolemia, unspecified; Z79.82 Long term (current) use of aspirin; Z79.84 Long term (current) use of oral hypoglycemic drugs; Y92.9 Unspecified place or not applicable

== ENCOUNTER 2018-08-25 18:32 | Inpatient (IN) | payer MEDICAID ==
[2018-08-25] MEDS ORDERED: Magnesium Hydroxide Susp 30 ml UD PO PRN (20:46)
[2018-08-25] MEDS ORDERED: Glucagon Recombinant 1 mg Inj IM PRN (20:51)
[2018-08-25] MEDS ORDERED: Dextrose 50% SYRINGE Inj (50 ml) IV PRN (20:51)
--- NOTE | 2018-08-25 21:08 | PCM.BM ---
<GalloZaire - Last Filed: 08/25/18 21:05> Treatment Plan Problems - Problems identified on initial assessmt Command/Auditory Hallucinations Date Initiated: 08/25/18 Time Initiated: 21:06 Assessment reference: NA Status: Active Priority: 1 Medication nonadherence Date Initiated: 08/25/18 Time Initiated: 21:06 Assessment reference: NA Status: Active Priority: 2 Activity Intolerance Date Initiated: 08/25/18 Time Initiated: 21:06 Assessment reference: NA Status: Active Priority: 3 Hopelessness/Helplessness Date Initiated: 08/25/18 Time Initiated: 21:07 Assessment reference: NA Status: Active Priority: 4 Feelings of Worthlessness Date Initiated: 08/25/18 Time Initiated: 21:07 Assessment reference: NA Status: Active Priority: 5 Treatment assets and liabiliti Patient Assests: cooperative, educated, self-reliant, negotiates basic needs Patient Liabilities: live alone, medical problems - Milieu Protocol Maintain good personal hygiene: daily Encourage regular showers, daily Remind patient to perform daily oral care, daily Assist patient to perform ADL's Conduct patient checks and document Observation sheet: Q15 minutes Maintain personal safety: every shift Educate patient to report safety concerns to staff, every shift Monitor environment for contraband/sharps Medication safety: Monitor for expected outcome, potential side effects: every shift, Assess barriers to learning: every shift, Assess readiness for medication education: every shift <Janina De Souza - Last Filed: 08/26/18 09:33> - Diagnosis (1) Schizoaffective disorder Status: Acute Interventions: Medication management, Individual and group therapy, Psychoeducation 08/26/18 09:33 <Stella Jama - Last Filed: 08/27/18 11:22> Family Contact Family involvement: Famliy/SO not involved - Outside Agency [facility] - Housing Program Care involvment: Information-sharing Agency contact name: Neal Turpin - disease case managermanager [place] contact number: [phone] [facility] - Mental Health Care involvment: Information-sharing Agency contact name: DAVE Denton Agency contact number: [phone] - Goals for Treatment Patient goals for treatment: Pt will improve overall mood. Pt will ne compliant with prescribed medications.Pt will attend clinical and activity group. Pt will be free of command auditory hallucinations. Discharge/Continuing Care - Education Needs Education Needs: Patient Medication, Patient Diagnosis/Disease Process, Patient Coping Skills, Patient Community resources, Patient Activities of Daily Living, Patient Health Practices/Safety, Patient Personal Hygiene/Grooming, Patient Aftercare Safety Plan - Discharge Discharge Criteria: Tolerates medication w/o severe side effects, Free of agitation, Normal sleep pattern, Ability to care for self, Reduction of target symptoms, Other (Free of command auditory hallucinations) Discharge to:: Home - Additional Comments 08/27/18 11:01 Pt seen and discussed in team meeting. Reason for hospitalization reviewed and discussed. Pt's progress on the unit reviewed. Pt reported he was referred to the hospital by his friend, Azar because he was feeling dizzy and lightheaded after taking one extra tablet of Seroquel. Pt reported command auditory hallucinations telling him to take extra Seroquel. Pt denied suicide ideation/plan/intent. Pt reported recognizing the voice and identified the voice being of the DENIAL RESOLUTION SPECIALIST, Corrie Vang at [facility]. Pt reported that he is now "feeling better." Pt reported that the voices "are going away." Pt's social and medical issues reviewed and discussed. Pt's medications reviewed by attending psychiatrist. Pt;s tx plan reviewed and discussed; pt verbalized agreement to same. SW to continue to follow case and contact outside agencies for collateral information. - Treatment Team Participation Discussed with Family/SO: No Was Patient/Family/SO present at Treatment Team Meeting: Yes
[2018-08-25] MEDS: Insulin Detemir 100 Units/ml Inj SC SCH (22:08)
[2018-08-25] MEDS: Insulin Regular 100 units/ml SC SCH (22:09)
[2018-08-26 06:53] LABS: HDL CHOLESTEROL 32 MG/DL (30-70)
[2018-08-26 06:54] LABS: IRON 58 ug/dL (49-181)
[2018-08-26 07:03] LABS: LDL CHOLESTEROL 74 mg/dL (0-129)
[2018-08-26 07:09] LABS: % IRON SATURATION 17 % (20-55); TOTAL IRON BINDING CAPACITY 347 ug/dL (250-450)
[2018-08-26 07:25] LABS: FERRITIN 44.5 ng/Ml (17.9-464)
[2018-08-26] MEDS: Multivitamin With Minerals Tab PO SCH (08:20)
[2018-08-26] MEDS: Aspirin 325 mg EC Tablets PO SCH (08:20)
--- NOTE | 2018-08-26 09:33 | PCM.PSYCH ---
Initial Psychiatric Evaluation - Initial Psychiatric Evaluation Type of Admission: Voluntary Legal Status: Capacity Chief Complaint (in patient's own words): "I was hearing voices." Patient's Reaction to Hospitalization: HPI: 62 yo male w/ h/o schizoaffective disorder, DM, HLD, HTN, presents w/ worsening hallucinations and CAH that told him to take extra seroquel. Patient also reports mood lability and anxiety. No VH/SI/HI. PPHx: H/o [place] psychiatric [place] with SONIA [place] [facility]; h/o >10 psychiatric hospitalizations; currently treated with Lexapro, Seroquel and Cogentin. Denies h/o suicide attempts. PMHx: HLD, HTN, DM ALL: NKDA SHx: Lives in an apartment; denies drugs/etoh/cig use FHx: Mother and maternal grandfather w/ alcohol use disorders Current Medications: Active Medications Generic Name Dose Route Start Last Admin Trade Name Freq PRN Reason Stop Dose Admin Acetaminophen 650 mg 08/25/18 20:46 08/26/18 08:16 Tylenol 325mg Tab PO 650 mg Q4 PRN Administration Pain, moderate (4-7) Al Hydrox/Mg Hydrox/Simethicone 30 ml 08/25/18 20:46 Maalox Plus 30 Ml PO Q4 PRN Dyspepsia Aspirin 325 mg 08/26/18 09:00 08/26/18 08:20 Ecotrin PO 325 mg DAILY [facility] Administration Benztropine Mesylate 1 mg 08/26/18 09:00 08/26/18 08:17 Cogentin PO 1 mg DAILY [facility] Administration Bismuth Subsalicylate 524 mg 08/25/18 20:46 Pepto-Bismol PO Q4 PRN Diarrhea Dextrose 0 ml 08/25/18 20:51 Dextrose 50% Inj IV STAT PRN Hypoglycemia Protocol Protocol Dextrose 0 gm 08/25/18 20:51 Glutose 15 PO ONCE PRN Hypoglycemia Protocol Protocol Escitalopram Oxalate 20 mg 08/26/18 09:00 08/26/18 08:19 Lexapro PO 20 mg DAILY [facility] Administration Folic Acid 1 mg 08/26/18 09:00 08/26/18 08:19 Folic Acid PO 1 mg DAILY [facility] Administration Glucagon 0 mg 08/25/18 20:51 Glucagen Diagnostic Kit IM STAT PRN Hypoglycemia Protocol Protocol Insulin Detemir 50 units 08/25/18 22:00 08/25/18 22:08 Levemir SC 50 unit HS [facility] Administration Insulin Human Regular 0 units 08/25/18 23:00 08/25/18 22:09 Humulin R SC Not Given ACCU-CHECK [facility] Protocol Lorazepam 0.5 mg 08/25/18 20:46 Ativan PO 09/08/18 20:47 HS PRN Insomnia Lorazepam 0.5 mg 08/25/18 20:46 Ativan PO 09/08/18 20:47 Q6 PRN Anixety/Agitation Magnesium Hydroxide 30 ml 08/25/18 20:46 Milk Of Magnesia PO HS PRN Constipation Metformin HCl 1,000 mg 08/26/18 08:00 08/26/18 08:18 Glucophage PO 1,000 mg BIDWM [facility] Administration Multivitamins/Minerals 1 tab 08/26/18 09:00 08/26/18 08:20 Therapeutic-M Tab PO 1 tab DAILY [facility] Administration Pravastatin Sodium 20 mg 08/26/18 18:00 Pravachol PO QPM [facility] Quetiapine Fumarate 100 mg 08/25/18 22:00 08/25/18 22:07 Seroquel PO 100 mg HS [facility] Administration Past Psychiatric History - Past Psychiatric History Pertinent Medical Hx (Current Medical&Sleep Prob, Allergies): Allergies Allergy/AdvReac Type Severity Reaction Status Date / Time No Known Allergies Allergy Verified 08/22/18 10:42 Benztropine [Cogentin] 1 mg PO DAILY #0 06/30/13 Aspirin [Ecotrin] 81 mg PO DAILY 08/22/18 Escitalopram [Lexapro] 20 mg PO DAILY 08/22/18 Folic Acid 1 tab PO DAILY 08/22/18 MetFORMIN [glucoPHAGE] 1,000 mg PO BID 08/22/18 Multivitamin [Multi-Vitamin Daily] 1 tab PO DAILY 08/22/18 Pravastatin Sodium [Pravachol] 20 mg PO QPM 08/22/18 QUEtiapine [Seroquel] 100 mg PO HS 08/22/18 Ramipril [Altace] 10 mg PO DAILY 08/22/18 Acetaminophen [Tylenol 325mg tab] 650 mg PO Q6 PRN tab 08/25/18 Aluminum Hydroxide/Magnesium [Maalox Plus 30 ml] 30 ml PO Q6 PRN udc 08/25/18 Insulin Detemir [Levemir] 50 units SC HS vial 08/25/18 Review of Systems - Psychiatric Psychiatric: As Per HPI, Abnormal Sleep Pattern, Anxiety, Auditory Hallucinations, Change in Appetite, Depression, Difficulty Concentrating, Hallucinations, Irritability, Mood Swings Mental Status Examination - Personal Presentation Personal Presentation: Looks stated age - Affect Affect: Constricted - Motor Activity Motor Activity: Calm - Reliability in Providing Information Reliability in Providing Information: Good - Speech Speech: Organized, Coherent - Mood Mood: Anxious - Formal Thought Process Formal Thought Process: Hallucinations - Hallucinations/Delusions Hallucinations: Auditory - Obsessions/Compulsions Obsessions: No Compulsions: No - Cognitive Functions Orientation: Person, Place, Situation, Time Sensorium: Alert Judgement: Intact, as evidence by: Insight regarding need for hospitalization Memory: Recent intact, as evidence by: Ability to recall events of the day, Remote intact, as evidenced by: Abilit to recall sig. life events - Risk Risk: Diminished functioning - Strength & Assets Inventory Strength & Assets Inventory: Life experience, Cooperative - Limitations Limitations: Living alone DSM 5 DX - DSM 5 DSM 5 Diagnosis: Schizoaffective Disorder - Recommended/Plan of Treatment Treatment Recommendations and Plan of Treatment: Schizoaffective Disorder -Admit to psychiatry unit -Continue Lexapro -Increase Seroquel -Medicine consult -Individual and group therapy -Disposition planning - Smoking Cessation Smoking Cessation Initiated: No Reason for not providing: Not indicated
[2018-08-26] MEDS: Insulin Regular 100 units/ml SC SCH ×4 (09:48→22:20)
[2018-08-26 13:12] LABS: FOLATE > 20.0 ng/mL
--- NOTE | 2018-08-26 16:09 | CP.PCM.HP ---
Past Patient History - Infectious Disease Hx of Infectious Diseases: None - Tetanus Immunizations Tetanus Immunization: Unknown - Past Medical History & Family History Past Medical History?: Yes - Past Social History Smoking Status: Never Smoked - CARDIAC Hx Cardiac Disorders: Yes - PULMONARY Hx Respiratory Disorders: No - NEUROLOGICAL Hx Parkinson's Disease: Yes - HEENT Hx HEENT Problems: No - RENAL Hx Chronic Kidney Disease: No - ENDOCRINE/METABOLIC Hx Endocrine Disorders: Yes Hx Diabetes Mellitus Type 2: Yes - HEMATOLOGICAL/ONCOLOGICAL Hx Human Immunodeficiency Virus (HIV): No - INTEGUMENTARY Hx Dermatological Problems: No Other/Comment: pt has IAD r/t incont of bowel - MUSCULOSKELETAL/RHEUMATOLOGICAL Hx Musculoskeletal Disorders: Yes Hx Falls: No - GASTROINTESTINAL Hx Gastrointestinal Disorders: No - GENITOURINARY/GYNECOLOGICAL Hx Genitourinary Disorders: No - PSYCHIATRIC Hx Depression: Yes Hx Emotional Abuse: No Hx Physical Abuse: No Hx Schizophrenia: Yes Hx Sexual Abuse: No Hx Substance Use: No - SURGICAL HISTORY Hx Tonsillectomy: Yes - ANESTHESIA Hx Anesthesia: Yes Hx Anesthesia Reactions: No Hx Malignant Hyperthermia: No Meds Allergies/Adverse Reactions: Allergies Allergy/AdvReac Type Severity Reaction Status Date / Time No Known Allergies Allergy Verified 08/22/18 10:42 Results - Vital Signs Recent Vital Signs: Last Vital Signs Temp 97.0 F L 08/26/18 15:29 Pulse 66 08/26/18 15:29 Resp 20 08/26/18 15:29 BP 154/73 H 08/26/18 15:29 Pulse Ox - Labs Labs: Laboratory Results - last 24 hr 08/25/18 08/26/18 08/26/18 22:07 06:09 06:10 POC Glucose (mg/dL) 141 H 84 Hemoglobin A1c Iron TIBC % Saturation Ferritin 44.5 Triglycerides 269 H D Cholesterol 150 LDL Cholesterol Direct 74 HDL Cholesterol 32 Vitamin B12 > 1000 H Folate > 20.0 Free T4 Thyroxine (T4) 5.74 TSH 3rd Generation 1.79 08/26/18 08/26/18 08/26/18 06:10 06:10 06:10 POC Glucose (mg/dL) Hemoglobin A1c 8.9 H Iron 58 TIBC 347 % Saturation 17 L Ferritin Triglycerides Cholesterol LDL Cholesterol Direct HDL Cholesterol Vitamin B12 Folate Free T4 1.09 Thyroxine (T4) TSH 3rd Generation 08/26/18 10:48 POC Glucose (mg/dL) 156 H Hemoglobin A1c Iron TIBC % Saturation Ferritin Triglycerides Cholesterol LDL Cholesterol Direct HDL Cholesterol Vitamin B12 Folate Free T4 Thyroxine (T4) TSH 3rd Generation
[2018-08-26] MEDS: Alum-Mag Hydrox-Simethicone Susp (30 mL) PO PRN ×2 (16:17→22:18)
[2018-08-26] MEDS: Insulin Detemir 100 Units/ml Inj SC SCH (21:15)
[2018-08-26] MEDS: Bismuth Subsalicylate 262 mg/15 ml Sus (240 ml) PO PRN (23:45)
[2018-08-27] MEDS: Aspirin 325 mg EC Tablets PO SCH (08:09)
[2018-08-27] MEDS: Multivitamin With Minerals Tab PO SCH (08:09)
[2018-08-27] MEDS: Insulin Regular 100 units/ml SC SCH ×4 (08:15→23:01)
--- NOTE | 2018-08-27 10:28 | PCM.PYCHPN ---
Psychiatric Progress Note - Psychiatric Progress Note Patient seen today, length of contact: Pt evaluated, case discussed w/ team, chart reviewed Patient Chief Complaint: "I was hearing voices." Problems Identified/Issues Discussed: Patient reports that his mood is improving. He reports that the auditory hallucinations are less frequent. He denies acute CAH. He is able to contract for safety. No VH/SI/HI. Medication Change: No Medical Record Reviewed: Yes Consults ordered or reviewed: Medicine consult Mental Status Examination - Cognitive Function Orientation: Person, Place, Situation, Time Memory: Intact Attention: WNL Concentration: WNL Association: WNL Fund of Knowledge: [facility] Decription of patient's judgement and insights: Fair I/J - Mood Mood: Anxious - Affect Affect: Constricted - Formal Thought Process Formal Thought Process: Hallucinations Psychotic Thoughts and Behaviors: +Less frequent AH - Suicidal Ideation Suicidal Ideation: No - Homicidal Ideation Homicidal Ideation: No Goal/Treatment Plan - Goal/Treatment Plan Need for Continued Stay: Remain at risks for inpatient hospitalization Progress Toward Problem(s) and Goals/Treatment Plan: Schizoaffective Disorder -Continue Lexapro -Continue Seroquel -Medicine consult -Individual and group therapy -Disposition planning Estimated Date of D/C: 08/29/18
[2018-08-27] MEDS: Bismuth Subsalicylate 262 mg/15 ml Sus (240 ml) PO PRN (11:59)
[2018-08-27] MEDS: Pravastatin Sodium 20 MG TAB PO SCH (17:15)
[2018-08-27] MEDS: Alum-Mag Hydrox-Simethicone Susp (30 mL) PO PRN (17:18)
[2018-08-27] MEDS: Insulin Detemir 100 Units/ml Inj SC SCH (21:06)
[2018-08-28] MEDS: Multivitamin With Minerals Tab PO SCH (08:23)
[2018-08-28] MEDS: Insulin Regular 100 units/ml SC SCH ×4 (08:24→23:03)
[2018-08-28] MEDS: Aspirin 325 mg EC Tablets PO SCH (08:24)
--- NOTE | 2018-08-28 08:40 | PCM.PYCHPN ---
Psychiatric Progress Note - Psychiatric Progress Note Patient seen today, length of contact: Pt evaluated, case discussed w/ team, chart reviewed Patient Chief Complaint: "I was hearing voices." Problems Identified/Issues Discussed: Patient reports that the AH are less frequent. He reports that his mood continues to improve. We discussed possible discharge tomorrow if he continues to improve clinically. He denies acute VH/SI/HI. No CAH. He is able to contract for safety. No adverse effects to medications reported. Medication Change: No Medical Record Reviewed: Yes Consults ordered or reviewed: Medicine consult Mental Status Examination - Cognitive Function Orientation: Person, Place, Situation, Time Memory: Intact Attention: WNL Concentration: WNL Association: WNL Fund of Knowledge: [facility] Decription of patient's judgement and insights: Fair I/J - Mood Mood: Anxious - Affect Affect: Constricted - Formal Thought Process Formal Thought Process: Hallucinations Psychotic Thoughts and Behaviors: +Less frequent AH - Suicidal Ideation Suicidal Ideation: No - Homicidal Ideation Homicidal Ideation: No Goal/Treatment Plan - Goal/Treatment Plan Need for Continued Stay: Remain at risks for inpatient hospitalization Progress Toward Problem(s) and Goals/Treatment Plan: Schizoaffective Disorder -Continue Lexapro -Continue Seroquel -Continue monthly Prolixin injection; next due in September -Medicine consult -Individual and group therapy -Disposition planning- likely discharge tomorrow if patient continues to improve clinically Estimated Date of D/C: 08/29/18
[2018-08-28] MEDS: Alum-Mag Hydrox-Simethicone Susp (30 mL) PO PRN (13:41)
[2018-08-28] MEDS: Pravastatin Sodium 20 MG TAB PO SCH (17:06)
[2018-08-28] MEDS: Insulin Detemir 100 Units/ml Inj SC SCH (21:06)
--- NOTE | 2018-08-28 23:45 | CP.PCM.PN ---
Subjective - Date & Time of Evaluation Date of Evaluation: 08/28/18 Objective - Vital Signs/Intake and Output Vital Signs (last 24 hours): Temp Pulse Resp BP Pulse Ox 97.7 F 67 18 141/77 08/28/18 15:59 08/28/18 15:59 08/28/18 15:59 08/28/18 15:59 - Medications Medications: Current Medications Acetaminophen (Tylenol 325mg Tab) 650 mg PO Q4 PRN PRN Reason: Pain, moderate (4-7) Stop: 08/29/18 07:00 Last Admin: 08/28/18 20:19 Dose: 650 mg Al Hydrox/Mg Hydrox/Simethicone (Maalox Plus 30 Ml) 30 ml PO Q4 PRN PRN Reason: Dyspepsia Stop: 08/29/18 07:00 Last Admin: 08/28/18 13:41 Dose: 30 ml Aspirin (Ecotrin) 325 mg PO DAILY [facility] Last Admin: 08/28/18 08:24 Dose: 325 mg Bismuth Subsalicylate (Pepto-Bismol) 524 mg PO Q4 PRN PRN Reason: Diarrhea Stop: 08/29/18 07:00 Last Admin: 08/27/18 11:59 Dose: 524 mg Dextrose (Dextrose 50% Inj) 0 ml IV STAT PRN; Protocol PRN Reason: Hypoglycemia Protocol Dextrose (Glutose 15) 0 gm PO ONCE PRN; Protocol PRN Reason: Hypoglycemia Protocol Escitalopram Oxalate (Lexapro) 20 mg PO DAILY [facility] Last Admin: 08/28/18 08:25 Dose: 20 mg Folic Acid (Folic Acid) 1 mg PO DAILY [facility] Last Admin: 08/28/18 08:24 Dose: 1 mg Glucagon (Glucagen Diagnostic Kit) 0 mg IM STAT PRN; Protocol PRN Reason: Hypoglycemia Protocol Insulin Detemir (Levemir) 50 units SC HS [facility] Last Admin: 08/28/18 21:06 Dose: 50 unit Insulin Human Regular (Humulin R) 0 units SC ACCU-CHECK BRYANNA; Protocol Last Admin: 08/28/18 17:05 Dose: Not Given Lorazepam (Ativan) 0.5 mg PO HS PRN PRN Reason: Insomnia Stop: 09/08/18 20:47 Lorazepam (Ativan) 0.5 mg PO Q6 PRN PRN Reason: Anixety/Agitation Stop: 09/08/18 20:47 Last Admin: 08/27/18 00:44 Dose: 0.5 mg Magnesium Hydroxide (Milk Of Magnesia) 30 ml PO HS PRN PRN Reason: Constipation Stop: 08/29/18 07:00 Metformin HCl (Glucophage) 1,000 mg PO BIDWM [facility] Last Admin: 08/28/18 17:05 Dose: 1,000 mg Multivitamins/Minerals (Therapeutic-M Tab) 1 tab PO DAILY [facility] Last Admin: 08/28/18 08:23 Dose: 1 tab Pravastatin Sodium (Pravachol) 20 mg PO QPM [facility] Last Admin: 08/28/18 17:06 Dose: 20 mg Quetiapine Fumarate (Seroquel) 200 mg PO HS [facility] Last Admin: 08/28/18 21:05 Dose: 200 mg
--- NOTE | 2018-08-28 23:45 | CP.PCM.PN ---
Subjective - Date & Time of Evaluation Date of Evaluation: 08/27/18 Objective - Vital Signs/Intake and Output Vital Signs (last 24 hours): Temp Pulse Resp BP Pulse Ox 97.7 F 67 18 141/77 08/28/18 15:59 08/28/18 15:59 08/28/18 15:59 08/28/18 15:59 - Medications Medications: Current Medications Acetaminophen (Tylenol 325mg Tab) 650 mg PO Q4 PRN PRN Reason: Pain, moderate (4-7) Stop: 08/29/18 07:00 Last Admin: 08/28/18 20:19 Dose: 650 mg Al Hydrox/Mg Hydrox/Simethicone (Maalox Plus 30 Ml) 30 ml PO Q4 PRN PRN Reason: Dyspepsia Stop: 08/29/18 07:00 Last Admin: 08/28/18 13:41 Dose: 30 ml Aspirin (Ecotrin) 325 mg PO DAILY [facility] Last Admin: 08/28/18 08:24 Dose: 325 mg Bismuth Subsalicylate (Pepto-Bismol) 524 mg PO Q4 PRN PRN Reason: Diarrhea Stop: 08/29/18 07:00 Last Admin: 08/27/18 11:59 Dose: 524 mg Dextrose (Dextrose 50% Inj) 0 ml IV STAT PRN; Protocol PRN Reason: Hypoglycemia Protocol Dextrose (Glutose 15) 0 gm PO ONCE PRN; Protocol PRN Reason: Hypoglycemia Protocol Escitalopram Oxalate (Lexapro) 20 mg PO DAILY [facility] Last Admin: 08/28/18 08:25 Dose: 20 mg Folic Acid (Folic Acid) 1 mg PO DAILY [facility] Last Admin: 08/28/18 08:24 Dose: 1 mg Glucagon (Glucagen Diagnostic Kit) 0 mg IM STAT PRN; Protocol PRN Reason: Hypoglycemia Protocol Insulin Detemir (Levemir) 50 units SC HS [facility] Last Admin: 08/28/18 21:06 Dose: 50 unit Insulin Human Regular (Humulin R) 0 units SC ACCU-CHECK BRYANNA; Protocol Last Admin: 08/28/18 17:05 Dose: Not Given Lorazepam (Ativan) 0.5 mg PO HS PRN PRN Reason: Insomnia Stop: 09/08/18 20:47 Lorazepam (Ativan) 0.5 mg PO Q6 PRN PRN Reason: Anixety/Agitation Stop: 09/08/18 20:47 Last Admin: 08/27/18 00:44 Dose: 0.5 mg Magnesium Hydroxide (Milk Of Magnesia) 30 ml PO HS PRN PRN Reason: Constipation Stop: 08/29/18 07:00 Metformin HCl (Glucophage) 1,000 mg PO BIDWM [facility] Last Admin: 08/28/18 17:05 Dose: 1,000 mg Multivitamins/Minerals (Therapeutic-M Tab) 1 tab PO DAILY [facility] Last Admin: 08/28/18 08:23 Dose: 1 tab Pravastatin Sodium (Pravachol) 20 mg PO QPM [facility] Last Admin: 08/28/18 17:06 Dose: 20 mg Quetiapine Fumarate (Seroquel) 200 mg PO HS [facility] Last Admin: 08/28/18 21:05 Dose: 200 mg
[2018-08-29 06:14] VITALS: BP 156/79; PULSE 86; RESP 19; TEMP 97.1
[2018-08-29] MEDS: Multivitamin With Minerals Tab PO SCH (08:35)
[2018-08-29] MEDS: Insulin Regular 100 units/ml SC SCH ×2 (08:37→12:13)
[2018-08-29] MEDS: Aspirin 325 mg EC Tablets PO SCH (08:38)
--- NOTE | 2018-08-29 09:25 | PCM.PYCHDC ---
Mental Status Examination - Mental Status Examination Orientation: Person, Place, Situation, Time Memory: Intact Affect: Broad Speech: Appropriate Attention: WNL Concentration: WNL Association: WNL Fund of Knowledge: WNL Formal Thought Process: No Impairment Description of patient's judgement and insight: Good I/J Psychotic Thoughts and Behaviors: Denies acute AH/VH/paranoia/delusions Suicidal Ideation: No Current Homicidal Ideation?: No Discharge Summary - Discharge Note Reason for Hospitalization: HPI: 62 yo male w/ h/o schizoaffective disorder, DM, HLD, HTN, presents w/ worsening hallucinations and CAH that told him to take extra seroquel. Patient also reports mood lability and anxiety. No VH/SI/HI. PPHx: H/o outpatient psychiatric treatment with SONIA Vang at [facility]; h/o >10 psychiatric hospitalizations; currently treated with Lexapro, Seroquel and Cogentin. Denies h/o suicide attempts. PMHx: HLD, HTN, DM ALL: NKDA SHx: Lives in an apartment; denies drugs/etoh/cig use FHx: Mother and maternal grandfather w/ alcohol use disorders Laboratory Data: Abnormal Lab Results 08/28/18 08/28/18 08/28/18 11:30 15:33 19:46 POC Glucose (mg/dL) 140 H 116 H 127 H 08/29/18 05:42 POC Glucose (mg/dL) 59 L Consultations:: List each consultation separately and include: 1. Reason for request. 2. Findings. 3. Follow-up Consultations: Medicine consult Summary of Hospital Course include:: 1. Description of specific treatment plan utilized for patients during their course of treatmen. 2. Summarize the time- course for resolution of acute symptoms and/or regressed behaviors. 3. Describe issues identified and worked on during hospitalization. 4. Describe medication utilized. 5. Describe medical problems identified and treated. 6. Reassessment of suicide risk Summary of Hospital Course: Patient was admitted to the psychiatry unit. Individual and group therapy were provided. Patient was stabilized on Seroquel 200 mg PO HS and he is due for his next Prolixin injection on September 08. He denies acute depression/anxiety/AH/VH/paranoia/delusions. He is psychiatrically stable for discharge at this time with outpatient follow-up. - Diagnosis (1) Schizoaffective disorder Current Visit: Yes Status: Chronic - Final Diagnosis (DSM 5) Condition upon Discharge: STABLE DSM 5: Schizoaffective Disorder Disposition: HOME/ ROUTINE Follow-up Treatment Plan: Schizoaffective Disorder -Continue Lexapro 20 mg PO Daily -Continue Seroquel 200 mg PO HS -Continue monthly Prolixin injection; next due in September 08 -Discharge to home with continued outpatient follow-up Prescriptions/Medication Reconciliation: Escitalopram [Lexapro] 20 mg PO DAILY #30 tab QUEtiapine [SEROquel] 200 mg PO HS #30 tab - Smoking Cessation Smoking Cessation Medication prescribed: No Reason for not providing: Not indicated - Antipsychotic Medications Pt discharged on 2 or more routine antipsychotic medications: Yes - Justification for 2 or more meds Failed 3 or more trials of Monotherapy: List medications: Patient was admitted with outpatient treatmend with Prolixin IM and Seroquel PO. He has not been able to be stabilized on treatment with 1 antipsychotic in the past.
[2018-08-29] MEDS ORDERED: Alum-Mag Hydrox-Simethicone Susp (30 mL) PO ONE (11:52)
[2018-08-29] MEDS ORDERED: Insulin Detemir 100 Units/ml Inj SC SCH (22:00)
--- NOTE | 2018-08-30 20:07 | CP.PCM.PN ---
Subjective - Date & Time of Evaluation Date of Evaluation: 08/29/18 Time of Evaluation: 14:00 - Subjective Subjective: Urine Culture sensitive to Ceftriaxone, and D/c Home on Keflex 500mg Q8hrs for & days Objective - Vital Signs/Intake and Output Vital Signs (last 24 hours): Temp Pulse Resp BP Pulse Ox 97.1 F L 86 19 156/79 H 08/29/18 08:43 08/29/18 06:00 08/29/18 06:00 08/29/18 06:00 Assessment and Plan (1) Hypotension Status: Acute (2) Urinary tract infectious disease Status: Acute (3) Schizoaffective disorder Status: Chronic - Assessment and Plan (Free Text) Plan: Improved D/C Home on Keflex
== END 2018-08-29 13:11 | disposition home or self-care (01) | DRG 430 ==
LOC: H.STEP 18:57
PROVIDERS: ADMIT Psychiatry & Neurology Psychiatry; ATTEND Psychiatry & Neurology Psychiatry
PROC: GZ3ZZZZ Medication Management (ICD-10-PCS; principal; 2018-08-25)
PROC: GZHZZZZ Group Psychotherapy (ICD-10-PCS; 2018-08-25)
PROC: GZ56ZZZ Individual Psychotherapy, Supportive (ICD-10-PCS; 2018-08-25)
DX: F25.9 Schizoaffective disorder, unspecified (principal); N39.0 Urinary tract infection, site not specified; E11.9 Type 2 diabetes mellitus without complications; E78.5 Hyperlipidemia, unspecified; I10 Essential (primary) hypertension; I95.9 Hypotension, unspecified; G20 Parkinson's disease; F41.9 Anxiety disorder, unspecified; Z79.899 Other long term (current) drug therapy